=== PATIENT | male | born 1970 | race African-American/Black ===

== ENCOUNTER 2021-09-13 13:43 | Emergency (ER) | payer SELFPAY ==
[~2021-09-13] VITALS: Ht 175.3 cm; Wt 113.4 kg
[2021-09-13 15:30] VITALS: BP 128/82
== END 2021-09-13 15:51 | disposition home or self-care (01) ==
LOC: ER 13:43
DX: M77.8 Other enthesopathies, not elsewhere classified (principal); Z87.891 Personal history of nicotine dependence; W18.39XA Other fall on same level, initial encounter; Y93.89 Activity, other specified; Y92.89 Other specified places as the place of occurrence of the external cause; Y99.8 Other external cause status
CPT/HCPCS: 73030

== ENCOUNTER 2022-09-13 22:52 | Inpatient (IN) | payer MEDICAID ==
[~2022-09-13] VITALS: Ht 175.3 cm
[2022-09-14] MEDS ORDERED: SODIUM CHLORIDE 0.9% 500 ML IV ONE
[2022-09-14 00:19] LABS: Basophils # (auto) 0.1 10 ^3/uL (0-0.2); Basophils % (auto) 1.3 % (0.0-2.0); Eosinophils # (auto) 0.1 10 ^3/uL (0-0.8); Eosinophils % (auto) 1.1 % (0.0-7.0); Hematocrit 43.9 % (41.0-53.0); Hemoglobin 14.6 g/dL (13.5-17.5); Lymphocytes # (auto) 2.7 10 ^3/uL (0.4-5.4); Lymphocytes % (auto) 32.9 % (10.0-50.0); Mean Corpuscular Hemoglobin 27.8 pg (28.0-32.0); Mean Corpuscular Hgb Conc. 33.2 g/dL (32.0-36.0); Mean Corpuscular Volume 83.5 fL (80.0-100.0); Monocytes # (auto) 0.9 10 ^3/uL (0-1.3); Monocytes % (auto) 10.2 % (0.0-12.0); Neutrophils # (auto) 4.6 10 ^3/uL (1.6-8.6); Neutrophils % (auto) 54.5 % (37.0-80.0); Nucleated Red Blood Cells % 0.2 %; Red Blood Cells 5.25 10^6/uL (4.5-5.90); Red Cell Distribution Width 15.2 % (11.8-14.3); White Blood Cell 8.3 10^3/uL (4.4-10.8)
[2022-09-14 00:34] LABS: Albumin 3.7 g/dL (3.4-5.0); BUN/Creatinine Ratio 15.1 (10.0-20.0); Calcium 8.8 mg/dL (8.5-10.1); Potassium 4.3 mmol/L (3.5-5.1)
[2022-09-14 00:37] LABS: Bilirubin, Total 0.7 mg/dL (0.2-1.0); Total Protein 7.2 g/dL (6.4-8.2)
[2022-09-14] MEDS ORDERED: dilTIAZem 25 MG/5 ML VIAL IV ONE ×3 (01:15)
[2022-09-14] MEDS ORDERED: ASPirin 81 mg TAB PO ONE (01:15)
[2022-09-14] MEDS ORDERED: HYDROcodone-ACET 5/325MG TAB PO PRN (03:00)
[2022-09-14] MEDS ORDERED: IBUPROFEN 600 MG TAB PO PRN (03:00)
[2022-09-14] MEDS ORDERED: ONDANSETRON HCL 4 MG/2 ML VIAL IV PRN (03:00)
[2022-09-14] MEDS ORDERED: MORPHINE SULFATE INJ 2 MG/ml SYRG IV PRN ×2 (03:00→04:30)
[2022-09-14] MEDS ORDERED: NITROGLYCERIN 0.4 MG SL TAB SL PRN (04:30)
[2022-09-14] MEDS: SODIUM CHLOR 0.9% PF (SALINE LOCK) 10ML VIAL/SYR IV SCH ×3 (05:43→21:48)
[2022-09-14 06:14] LABS: Basophils # (auto) 0.1 10 ^3/uL (0-0.2); Basophils % (auto) 0.8 % (0.0-2.0); Eosinophils # (auto) 0.1 10 ^3/uL (0-0.8); Eosinophils % (auto) 1.1 % (0.0-7.0); Hematocrit 41.5 % (41.0-53.0); Hemoglobin 13.7 g/dL (13.5-17.5); Lymphocytes # (auto) 2.7 10 ^3/uL (0.4-5.4); Lymphocytes % (auto) 38.1 % (10.0-50.0); Mean Corpuscular Hemoglobin 27.7 pg (28.0-32.0); Mean Corpuscular Volume 83.9 fL (80.0-100.0); Monocytes # (auto) 0.7 10 ^3/uL (0-1.3); Monocytes % (auto) 9.9 % (0.0-12.0); Neutrophils # (auto) 3.5 10 ^3/uL (1.6-8.6); Neutrophils % (auto) 50.1 % (37.0-80.0); Nucleated Red Blood Cells % 0.1 %; Red Blood Cells 4.95 10^6/uL (4.5-5.90); Red Cell Distribution Width 14.9 % (11.8-14.3); White Blood Cell 7.1 10^3/uL (4.4-10.8)
[2022-09-14 06:41] LABS: Potassium 4.4 mmol/L (3.5-5.1)
[2022-09-14 07:09] LABS: Albumin 3.6 g/dL (3.4-5.0); BUN/Creatinine Ratio 16.6 (10.0-20.0); Bilirubin, Total 0.7 mg/dL (0.2-1.0); Total Protein 6.5 g/dL (6.4-8.2)
[2022-09-14] MEDS ORDERED: AMIODARONE HCL 200 MG TAB PO SCH (10:00)
[2022-09-14] MEDS ORDERED: CARVEDILOL 12.5 MG TAB PO SCH (10:00)
[2022-09-14] MEDS: FUROSEMIDE 40 MG/4 ML VIAL IV SCH (10:40)
[2022-09-14] MEDS: ASPirin 81 mg TAB PO SCH (10:41)
[2022-09-14] MEDS: FAMOTIDINE (10MG/ML) 2ML VL IV SCH (10:41)
[2022-09-14] MEDS: APIXABAN 5 MG TAB PO SCH ×2 (10:42→22:52)
[2022-09-14] MEDS: dilTIAZem HCL 60 MG TAB PO SCH ×2 (12:43→22:43)
[2022-09-14] MEDS ORDERED: AMIODARONE 450mg/250ml AE 250 ML IV SCH ×2 (13:45→19:45)
[2022-09-14] MEDS ORDERED: LORazepam 2MG/ML-1ML VIAL IV ONE (16:15)
[2022-09-14 17:50] VITALS: BP 98/75
[2022-09-14] MEDS ORDERED: SODIUM CHLORIDE 0.9% 1,000 ML IV ONE (18:45)
[2022-09-14] MEDS: SUCRALFATE 1 GM/10 ML ORAL SUSP PO SCH (19:29)
[2022-09-14 19:58] VITALS: BP 117/94
[2022-09-14] MEDS: NOREPINEPHRINE 8 MG/250ML KIT 250 ML IV SCH (21:13)
[2022-09-14] MEDS ORDERED: ALPRAZolam 0.5 MG TAB PO PRN (22:00)
[2022-09-14] MEDS ORDERED: CARVEDILOL 3.125 MG TAB PO SCH (22:00)
[2022-09-14] MEDS: ATORVASTATIN 20 MG TAB PO SCH (22:52)
[2022-09-14 23:21] VITALS: BP 117/94
[2022-09-15] VITALS (70 sets, daily range): BP systolic 87–128; BP diastolic 36–87
[2022-09-15] MEDS: LORazepam 2MG/ML-1ML VIAL IV PRN (00:01)
[2022-09-15] MEDS ORDERED: levETIRAcetam 500 MG/5ML INJ IV ONE (00:19)
[2022-09-15] MEDS ORDERED: LORazepam 2MG/ML-1ML VIAL ONE (03:53)
[2022-09-15] MEDS ORDERED: ETOMIDATE (2MG/ML) 20ML VIAL IV ONE ×2 (03:58→05:00)
[2022-09-15] MEDS ORDERED: ROCURONIUM 10MG/ML 10ML VIAL IV ONE ×2 (03:58→05:00)
[2022-09-15] MEDS ORDERED: LORazepam 2MG/ML-1ML VIAL IV ONE ×2 (04:00→06:30)
[2022-09-15] MEDS ORDERED: EPINEPHrine HCL 1 MG/10 ML SYRG ONE ×2 (04:12→06:03)
[2022-09-15] MEDS ORDERED: EPINEPHrine HCL 250 ML IV ONE (04:12)
[2022-09-15] MEDS ORDERED: fentaNYL Drip 2500mCg/250mlNS 250 ML IV ONE (04:25)
[2022-09-15] MEDS: fentaNYL Drip 2500mCg/250mlNS 250 ML IV SCH ×2 (04:25→20:33)
[2022-09-15] MEDS: EPINEPHrine HCL 250 ML IV SCH ×3 (04:25→18:05)
[2022-09-15] MEDS ORDERED: fentaNYL CITRATE 100 MCG/2 ML VL IV ONE (04:45)
[2022-09-15 05:45] LABS: Basophils # (auto) 0.1 10 ^3/uL (0-0.2); Basophils % (auto) 0.4 % (0.0-2.0); Eosinophils # (auto) 0 10 ^3/uL (0-0.8); Hematocrit 45.2 % (41.0-53.0); Hemoglobin 14.2 g/dL (13.5-17.5); Lymphocytes # (auto) 2.5 10 ^3/uL (0.4-5.4); Lymphocytes % (auto) 18.2 % (10.0-50.0); Mean Corpuscular Hemoglobin 27.2 pg (28.0-32.0); Mean Corpuscular Hgb Conc. 31.3 g/dL (32.0-36.0); Mean Corpuscular Volume 86.8 fL (80.0-100.0); Monocytes # (auto) 0.9 10 ^3/uL (0-1.3); Monocytes % (auto) 6.9 % (0.0-12.0); Neutrophils # (auto) 10.1 10 ^3/uL (1.6-8.6); Neutrophils % (auto) 74.5 % (37.0-80.0); Nucleated Red Blood Cells % 0.6 %; Red Blood Cells 5.21 10^6/uL (4.5-5.90); Red Cell Distribution Width 15.7 % (11.8-14.3); White Blood Cell 13.6 10^3/uL (4.4-10.8)
[2022-09-15] MEDS: dilTIAZem HCL 60 MG TAB PO SCH (06:00)
[2022-09-15] MEDS ORDERED: DOPamine 1600MCG/ML D5W 250 ML IV ONE ×2 (06:01→12:09)
[2022-09-15] MEDS ORDERED: SODIUM BICARBONATE 8.4 % INJ 50ML VIAL IV ONE (06:01)
[2022-09-15 06:05] LABS: Albumin 3.2 g/dL (3.4-5.0); Calcium 8.7 mg/dL (8.5-10.1)
[2022-09-15 06:07] LABS: Potassium 7.1 mmol/L (3.5-5.1)
[2022-09-15] MEDS ORDERED: InsuLIN REG 1unit/0.01ml Soln (100units/ml) ONE (06:11)
[2022-09-15] MEDS ORDERED: MIDAZOLAM HCL 5 MG/ML-1ML VIAL ONE (06:16)
[2022-09-15 06:22] LABS: BUN/Creatinine Ratio 9.4 (10.0-20.0); Total Protein 6.3 g/dL (6.4-8.2)
[2022-09-15] MEDS: SODIUM CHLOR 0.9% PF (SALINE LOCK) 10ML VIAL/SYR IV SCH ×3 (06:29→21:46)
[2022-09-15] MEDS ORDERED: DEXTROSE (50%) 50ML SYRG IV ONE ×2 (06:30→11:30)
[2022-09-15] MEDS ORDERED: DEXTROSE 10% 250 ML IV ONE (06:30)
[2022-09-15] MEDS ORDERED: InsuLIN REG 1unit/0.01ml Soln (100units/ml) IV ONE ×2 (06:30→11:30)
[2022-09-15] MEDS ORDERED: MIDAZOLAM HCL 5 MG/ML-1ML VIAL IV ONE (06:30)
[2022-09-15] MEDS ORDERED: CALCIUM CHLOR(10%) 100MG/ML 10ML SYRINGE IV SCH (06:30)
[2022-09-15] MEDS: SUCRALFATE 1 GM/10 ML ORAL SUSP PO SCH ×3 (07:00→19:14)
[2022-09-15] MEDS ORDERED: DOPamine 1600MCG/ML D5W 250 ML IV SCH ×2 (07:15→11:30)
[2022-09-15] MEDS ORDERED: SODIUM BICARBONATE 50ML VIAL 50 ML in SOD CHL 0.45% 1,000 ML IV SCH (07:15)
[2022-09-15] MEDS ORDERED: SODIUM BICARBONATE 50ML VIAL 150 ML in D5W 5% 1,000 ML IV SCH (09:30)
[2022-09-15] MEDS: PROPOFOL 100 ML IV SCH (09:30)
[2022-09-15 09:45] LABS: Eosinophils # (auto) 0 10 ^3/uL (0-0.8); Nucleated Red Blood Cells % 0.3 %
[2022-09-15 09:46] LABS: Basophils # (auto) 0.1 10 ^3/uL (0-0.2); Basophils % (auto) 0.4 % (0.0-2.0); Eosinophils % (auto) 0.1 % (0.0-7.0); Hematocrit 41.4 % (41.0-53.0); Hemoglobin 13.6 g/dL (13.5-17.5); Lymphocytes # (auto) 1.2 10 ^3/uL (0.4-5.4); Lymphocytes % (auto) 6.7 % (10.0-50.0); Mean Corpuscular Hemoglobin 27.1 pg (28.0-32.0); Mean Corpuscular Hgb Conc. 32.9 g/dL (32.0-36.0); Mean Corpuscular Volume 82.4 fL (80.0-100.0); Monocytes # (auto) 0.9 10 ^3/uL (0-1.3); Monocytes % (auto) 5.2 % (0.0-12.0); Neutrophils # (auto) 15.8 10 ^3/uL (1.6-8.6); Neutrophils % (auto) 87.6 % (37.0-80.0); Red Blood Cells 5.03 10^6/uL (4.5-5.90); Red Cell Distribution Width 14.6 % (11.8-14.3)
[2022-09-15 09:50] LABS: Albumin 3.3 g/dL (3.4-5.0); Calcium 9.7 mg/dL (8.5-10.1)
[2022-09-15] MEDS ORDERED: ENOXAPARIN SOD 40 MG/0.4 ML SYRINGE SC SCH (10:00)
[2022-09-15 10:17] LABS: BUN/Creatinine Ratio 9.9 (10.0-20.0); Bilirubin, Total 3.3 mg/dL (0.2-1.0); Total Protein 6.4 g/dL (6.4-8.2)
[2022-09-15] MEDS ORDERED: CEFEPIME 2GM/50ML NS 50 ML IV ONE (10:30)
[2022-09-15] MEDS: FUROSEMIDE 40 MG/4 ML VIAL IV SCH (10:30)
[2022-09-15 10:38] LABS: Potassium 6.7 mmol/L (3.5-5.1)
[2022-09-15] MEDS: FAMOTIDINE (10MG/ML) 2ML VL IV SCH (11:26)
[2022-09-15] MEDS ORDERED: CALCIUM GLUC 1,000mg/50ml-NS 50 ML IV ONE (11:30)
[2022-09-15] MEDS ORDERED: SODIUM ZIRCONIUM CYCL 10 GM PAK PO ONE (11:30)
[2022-09-15] MEDS: PANTOPRAZOLE 40 MG/10 ML VIAL INJ IV SCH (11:40)
[2022-09-15] MEDS: ASPirin 81 mg TAB PO SCH (11:40)
[2022-09-15] MEDS ORDERED: DEXTROSE 10% 250 ML Bag IV ONE (12:00)
[2022-09-15] MEDS: DOPamine 1600MCG/ML D5W 250 ML IV SCH (12:09)
[2022-09-15 12:26] LABS: Alcohol, Urine < 3.0 mg/dL (0-10); Barbiturate Scree,Urine NEGATIVE (NEGATIVE); Benzodiazephine Screen, Urine POSITIVE (NEGATIVE); Cannabinoid Screen, Urine NEGATIVE (NEGATIVE); Cocaine Screen, Urine NEGATIVE (NEGATIVE)
[2022-09-15 12:27] LABS: Lactic Acid w/Reflex 4.6 mmol/L (0.4-2.0)
[2022-09-15 12:37] LABS: Amphetamine Screen, Urine NEGATIVE (NEGATIVE); Opiate Scree,Urine NEGATIVE (NEGATIVE); Phencyclidine Screen, Urine NEGATIVE (NEGATIVE)
[2022-09-15 13:04] LABS: Urine Bacteria NONE SEEN /hpf (None Seen); Urine Blood 3+ /uL (Negative); Urine Hyaline Cast MOD /lpf (0 - 2); Urine Mucus FEW (None Seen); Urine Specific Gravity 1.016 (1.001-1.035); Urine WBC 102 /hpf (0 - 3)
[2022-09-15] MEDS: SODIUM BICARBONATE 50ML VIAL 50 ML in D5W/SOD CHL 0.45% 1,000 ML IV SCH ×2 (13:05→22:58)
[2022-09-15] MEDS: BUMETANIDE INJECTION 12.5 MG in GIVE UN-DILUTED 0 ML IV SCH ×2 (13:22→22:59)
[2022-09-15 13:28] LABS: Protein, Urine 918.6 mg/dL (0.0-11.9)
[2022-09-15] MEDS: NOREPINEPHRINE 8 MG/250ML KIT 250 ML IV SCH (15:30)
[2022-09-15 18:39] LABS: BUN/Creatinine Ratio 11.1 (10.0-20.0); Calcium 8.8 mg/dL (8.5-10.1); Potassium 5.4 mmol/L (3.5-5.1)
[2022-09-15] MEDS: ATORVASTATIN 20 MG TAB PO SCH (21:46)
[2022-09-16] VITALS (102 sets, daily range): BP systolic 92–206; BP diastolic 57–200
[2022-09-16] MEDS: EPINEPHrine HCL 250 ML IV SCH ×4 (00:45→19:45)
[2022-09-16 04:39] LABS: Basophils # (auto) 0.1 10 ^3/uL (0-0.2); Basophils % (auto) 0.7 % (0.0-2.0); Eosinophils # (auto) 0 10 ^3/uL (0-0.8); Eosinophils % (auto) 0.1 % (0.0-7.0); Hematocrit 38.6 % (41.0-53.0); Hemoglobin 12.9 g/dL (13.5-17.5); Lymphocytes # (auto) 1.6 10 ^3/uL (0.4-5.4); Lymphocytes % (auto) 11.5 % (10.0-50.0); Mean Corpuscular Hemoglobin 27.1 pg (28.0-32.0); Mean Corpuscular Hgb Conc. 33.5 g/dL (32.0-36.0); Mean Corpuscular Volume 81.1 fL (80.0-100.0); Monocytes # (auto) 0.4 10 ^3/uL (0-1.3); Monocytes % (auto) 2.5 % (0.0-12.0); Neutrophils # (auto) 11.9 10 ^3/uL (1.6-8.6); Neutrophils % (auto) 85.2 % (37.0-80.0); Nucleated Red Blood Cells % 0.7 %; Red Blood Cells 4.76 10^6/uL (4.5-5.90); Red Cell Distribution Width 15.3 % (11.8-14.3); White Blood Cell 13.9 10^3/uL (4.4-10.8)
[2022-09-16 05:19] LABS: Albumin 2.9 g/dL (3.4-5.0); Calcium 7.7 mg/dL (8.5-10.1); Potassium 4.2 mmol/L (3.5-5.1)
[2022-09-16 05:44] LABS: Total Protein 5.4 g/dL (6.4-8.2)
[2022-09-16] MEDS: SUCRALFATE 1 GM/10 ML ORAL SUSP PO SCH ×3 (06:59→17:57)
[2022-09-16] MEDS: SODIUM CHLOR 0.9% PF (SALINE LOCK) 10ML VIAL/SYR IV SCH ×3 (06:59→21:33)
[2022-09-16] MEDS: PROPOFOL 100 ML IV SCH (09:30)
[2022-09-16] MEDS: SODIUM BICARBONATE 50ML VIAL 50 ML in D5W/SOD CHL 0.45% 1,000 ML IV SCH ×3 (09:48→22:05)
[2022-09-16] MEDS: CEFEPIME 2GM/50ML NS 50 ML IV SCH (10:36)
[2022-09-16] MEDS: PANTOPRAZOLE 40 MG/10 ML VIAL INJ IV SCH (10:37)
[2022-09-16] MEDS: FAMOTIDINE (10MG/ML) 2ML VL IV SCH (10:41)
[2022-09-16] MEDS: ENOXAPARIN SOD 40 MG/0.4 ML SYRINGE SC SCH (10:42)
[2022-09-16] MEDS: ASPirin 81 mg TAB PO SCH (10:42)
[2022-09-16] MEDS: fentaNYL Drip 2500mCg/250mlNS 250 ML IV SCH (11:57)
[2022-09-16] MEDS: DOPamine 1600MCG/ML D5W 250 ML IV SCH (17:44)
[2022-09-16] MEDS: NOREPINEPHRINE 8 MG/250ML KIT 250 ML IV SCH (19:45)
[2022-09-16] MEDS: ATORVASTATIN 20 MG TAB PO SCH (21:33)
[2022-09-16] MEDS ORDERED: SODIUM BICARBONATE 8.4% INJ 50ML SYRINGE ONE (21:54)
[2022-09-16] MEDS: BUMETANIDE INJECTION 12.5 MG in GIVE UN-DILUTED 0 ML IV SCH (22:00)
[2022-09-17] VITALS (103 sets, daily range): BP systolic 99–156; BP diastolic 66–98
[2022-09-17] MEDS: EPINEPHrine HCL 250 ML IV SCH ×4 (03:25→23:25)
[2022-09-17 04:01] LABS: Basophils # (auto) 0.1 10 ^3/uL (0-0.2); Basophils % (auto) 0.8 % (0.0-2.0); Eosinophils # (auto) 0 10 ^3/uL (0-0.8); Eosinophils % (auto) 0.1 % (0.0-7.0); Hematocrit 40.7 % (41.0-53.0); Hemoglobin 13.9 g/dL (13.5-17.5); Lymphocytes # (auto) 0.9 10 ^3/uL (0.4-5.4); Lymphocytes % (auto) 8.7 % (10.0-50.0); Mean Corpuscular Hemoglobin 27.8 pg (28.0-32.0); Mean Corpuscular Hgb Conc. 34.2 g/dL (32.0-36.0); Mean Corpuscular Volume 81.1 fL (80.0-100.0); Monocytes # (auto) 0.6 10 ^3/uL (0-1.3); Monocytes % (auto) 5.2 % (0.0-12.0); Neutrophils # (auto) 9.2 10 ^3/uL (1.6-8.6); Neutrophils % (auto) 85.2 % (37.0-80.0); Nucleated Red Blood Cells % 0.5 %; Red Blood Cells 5.01 10^6/uL (4.5-5.90); Red Cell Distribution Width 15.3 % (11.8-14.3); White Blood Cell 10.8 10^3/uL (4.4-10.8)
[2022-09-17 04:02] LABS: Calcium 7.7 mg/dL (8.5-10.1); Potassium 3.6 mmol/L (3.5-5.1)
[2022-09-17 04:04] LABS: BUN/Creatinine Ratio 9.2 (10.0-20.0)
[2022-09-17] MEDS: fentaNYL Drip 2500mCg/250mlNS 250 ML IV SCH ×2 (04:16→19:31)
[2022-09-17] MEDS ORDERED: SODIUM BICARBONATE 8.4 % INJ 50ML VIAL IV ONE (05:33)
[2022-09-17] MEDS: SODIUM CHLOR 0.9% PF (SALINE LOCK) 10ML VIAL/SYR IV SCH ×3 (06:02→21:26)
[2022-09-17] MEDS: SUCRALFATE 1 GM/10 ML ORAL SUSP PO SCH ×3 (06:02→17:47)
[2022-09-17] MEDS ORDERED: SODIUM CHL 0.9% 1000 ML BAG XX ONE (07:00)
[2022-09-17] MEDS: PROPOFOL 100 ML IV SCH ×2 (09:30→23:12)
[2022-09-17] MEDS ORDERED: Jevity 1.2 Cal/Fiber 1 Liter GT SCH (09:45)
[2022-09-17] MEDS: ASPirin 81 mg TAB PO SCH (10:54)
[2022-09-17] MEDS: DOCUSATE SOD 100 MG CAP PO PRN (10:54)
[2022-09-17] MEDS: FAMOTIDINE (10MG/ML) 2ML VL IV SCH (10:55)
[2022-09-17] MEDS: PANTOPRAZOLE 40 MG/10 ML VIAL INJ IV SCH (10:55)
[2022-09-17] MEDS: ENOXAPARIN SOD 40 MG/0.4 ML SYRINGE SC SCH (10:55)
[2022-09-17] MEDS: CEFEPIME 2GM/50ML NS 50 ML IV SCH (10:56)
[2022-09-17] MEDS: DOPamine 1600MCG/ML D5W 250 ML IV SCH ×2 (11:17→21:25)
[2022-09-17 14:32] LABS: Hepatitis C Antibody Negative (Negative)
[2022-09-17] MEDS: D5W 5% 1,000 ML IV SCH (17:49)
[2022-09-17] MEDS: NOREPINEPHRINE 8 MG/250ML KIT 250 ML IV SCH (21:00)
[2022-09-17] MEDS: BUMETANIDE INJECTION 12.5 MG in GIVE UN-DILUTED 0 ML IV SCH (21:26)
[2022-09-17] MEDS: ACCU-CHEK COMFORT CURVE STRIP VI SCH (21:26)
[2022-09-17] MEDS: ATORVASTATIN 20 MG TAB PO SCH (21:26)
[2022-09-17] MEDS ORDERED: DEXTROSE (50%) 50ML SYRG IV PRN (22:00)
[2022-09-18] VITALS (99 sets, daily range): BP systolic 86–161; BP diastolic 58–97
[2022-09-18] MEDS: ACCU-CHEK COMFORT CURVE STRIP VI SCH ×6 (00:45→20:18)
[2022-09-18 01:55] LABS: Potassium 3.3 mmol/L (3.5-5.1)
[2022-09-18 01:59] LABS: Magnesium 2.4 mg/dL (1.6-2.6)
[2022-09-18 03:54] LABS: Basophils # (auto) 0.1 10 ^3/uL (0-0.2); Basophils % (auto) 0.7 % (0.0-2.0); Eosinophils # (auto) 0.1 10 ^3/uL (0-0.8); Eosinophils % (auto) 0.9 % (0.0-7.0); Hematocrit 43.7 % (41.0-53.0); Hemoglobin 14.9 g/dL (13.5-17.5); Lymphocytes # (auto) 1.1 10 ^3/uL (0.4-5.4); Lymphocytes % (auto) 11.8 % (10.0-50.0); Mean Corpuscular Hemoglobin 27.7 pg (28.0-32.0); Mean Corpuscular Hgb Conc. 34.2 g/dL (32.0-36.0); Mean Corpuscular Volume 81.2 fL (80.0-100.0); Monocytes # (auto) 0.7 10 ^3/uL (0-1.3); Neutrophils # (auto) 7.6 10 ^3/uL (1.6-8.6); Neutrophils % (auto) 79.6 % (37.0-80.0); Nucleated Red Blood Cells % 0.4 %; Red Blood Cells 5.38 10^6/uL (4.5-5.90); Red Cell Distribution Width 15.2 % (11.8-14.3); White Blood Cell 9.5 10^3/uL (4.4-10.8)
[2022-09-18 04:12] LABS: Albumin 2.8 g/dL (3.4-5.0); Calcium 7.9 mg/dL (8.5-10.1); Potassium 3.3 mmol/L (3.5-5.1)
[2022-09-18 04:15] LABS: BUN/Creatinine Ratio 9.5 (10.0-20.0)
[2022-09-18 04:25] LABS: Bilirubin, Total 3.2 mg/dL (0.2-1.0); Total Protein 6.1 g/dL (6.4-8.2)
[2022-09-18] MEDS: SUCRALFATE 1 GM/10 ML ORAL SUSP PO SCH ×3 (05:55→17:08)
[2022-09-18] MEDS: D5W 5% 1,000 ML IV SCH (05:56)
[2022-09-18] MEDS: SODIUM CHLOR 0.9% PF (SALINE LOCK) 10ML VIAL/SYR IV SCH ×3 (05:59→22:09)
[2022-09-18] MEDS: EPINEPHrine HCL 250 ML IV SCH ×3 (06:05→19:25)
[2022-09-18] MEDS: PANTOPRAZOLE 40 MG/10 ML VIAL INJ IV SCH (10:20)
[2022-09-18] MEDS: ENOXAPARIN SOD 30 MG/0.3 ML SYRINGE SC SCH (10:21)
[2022-09-18] MEDS: ASPirin 81 mg TAB PO SCH (10:22)
[2022-09-18] MEDS: CEFEPIME 2GM/50ML NS 50 ML IV SCH (10:31)
[2022-09-18] MEDS: DOCUSATE SOD 100 MG CAP PO PRN (10:32)
[2022-09-18] MEDS: fentaNYL Drip 2500mCg/250mlNS 250 ML IV SCH (12:11)
[2022-09-18] MEDS ORDERED: POTASSIUM CHL 20MEQ/100ML 100 ML IV ONE (13:45)
[2022-09-18] MEDS: PROPOFOL 100 ML IV SCH (17:00)
[2022-09-18] MEDS ORDERED: BUMETANIDE 1mg/4ml VIAL (0.25mg/ml) IV SCH (18:00)
[2022-09-18] MEDS: NOREPINEPHRINE 8 MG/250ML KIT 250 ML IV SCH (21:00)
[2022-09-18] MEDS: ATORVASTATIN 20 MG TAB PO SCH (22:08)
[2022-09-19] VITALS (88 sets, daily range): BP systolic 88–136; BP diastolic 47–96
[2022-09-19] MEDS: ACCU-CHEK COMFORT CURVE STRIP VI SCH ×6 (00:25→19:40)
[2022-09-19] MEDS: EPINEPHrine HCL 250 ML IV SCH ×4 (02:05→22:28)
[2022-09-19 04:45] LABS: Basophils # (auto) 0 10 ^3/uL (0-0.2); Basophils % (auto) 0.4 % (0.0-2.0); Eosinophils # (auto) 0.1 10 ^3/uL (0-0.8)
[2022-09-19 04:47] LABS: Eosinophils % (auto) 0.6 % (0.0-7.0); Hematocrit 47.8 % (41.0-53.0); Hemoglobin 16.6 g/dL (13.5-17.5); Lymphocytes # (auto) 1.2 10 ^3/uL (0.4-5.4); Lymphocytes % (auto) 13.6 % (10.0-50.0); Mean Corpuscular Hemoglobin 27.8 pg (28.0-32.0); Mean Corpuscular Hgb Conc. 34.8 g/dL (32.0-36.0); Monocytes # (auto) 1.2 10 ^3/uL (0-1.3); Neutrophils # (auto) 6.6 10 ^3/uL (1.6-8.6); Neutrophils % (auto) 72.4 % (37.0-80.0); Nucleated Red Blood Cells % 0.3 %; Red Blood Cells 5.97 10^6/uL (4.5-5.90); Red Cell Distribution Width 15.4 % (11.8-14.3); White Blood Cell 9.1 10^3/uL (4.4-10.8)
[2022-09-19 04:48] LABS: Calcium 8.4 mg/dL (8.5-10.1); Potassium 3.5 mmol/L (3.5-5.1)
[2022-09-19 04:59] LABS: Total Protein 6.9 g/dL (6.4-8.2)
[2022-09-19 05:41] LABS: BUN/Creatinine Ratio 10.7 (10.0-20.0)
[2022-09-19] MEDS: SUCRALFATE 1 GM/10 ML ORAL SUSP PO SCH ×3 (05:55→17:21)
[2022-09-19] MEDS: PROPOFOL 100 ML IV SCH ×2 (05:55→22:27)
[2022-09-19] MEDS: SODIUM CHLOR 0.9% PF (SALINE LOCK) 10ML VIAL/SYR IV SCH ×3 (05:55→22:27)
[2022-09-19] MEDS: BUMETANIDE 1mg/4ml VIAL (0.25mg/ml) IV SCH ×2 (06:46→17:22)
[2022-09-19] MEDS ORDERED: SODIUM CHLORIDE 0.9% 1,000 ML IV SCH (07:30)
[2022-09-19] MEDS: fentaNYL Drip 2500mCg/250mlNS 250 ML IV SCH (07:36)
[2022-09-19] MEDS: PANTOPRAZOLE 40 MG/10 ML VIAL INJ IV SCH (09:50)
[2022-09-19] MEDS: CEFEPIME 2GM/50ML NS 50 ML IV SCH (09:50)
[2022-09-19] MEDS: ASPirin 81 mg TAB PO SCH (09:51)
[2022-09-19] MEDS: ENOXAPARIN SOD 30 MG/0.3 ML SYRINGE SC SCH (09:51)
[2022-09-19] MEDS: IPRATROPIUM BROM 0.5 MG/2.5ML INH SOL NEB SCH ×2 (11:03→18:07)
[2022-09-19] MEDS: LEVALBUTEROL HCL 1.25 MG/3 ML NEB NEB SCH ×2 (11:03→18:06)
[2022-09-19] MEDS: FREE WATER GT SCH ×2 (14:08→22:27)
[2022-09-19] MEDS ORDERED: CHOLECALCIFEROL (VITD3) 2,000 UNIT CAP/TAB NG ONE (15:15)
[2022-09-19 16:25] LABS: Urine Bacteria FEW /hpf (None Seen); Urine Blood 1+ /uL (Negative); Urine Mucus FEW (None Seen); Urine Specific Gravity 1.008 (1.001-1.035); Urine WBC 1 /hpf (0 - 3)
[2022-09-19] MEDS: CALCIUM ACETATE 667 MG CAP NG SCH (17:21)
[2022-09-19 18:08] LABS: Protein, Urine 29.7 mg/dL (0.0-11.9)
[2022-09-19] MEDS: NOREPINEPHRINE 8 MG/250ML KIT 250 ML IV SCH (21:00)
[2022-09-19] MEDS: ATORVASTATIN 20 MG TAB PO SCH (22:27)
[2022-09-20] VITALS (103 sets, daily range): BP systolic 78–178; BP diastolic 57–103
[2022-09-20] MEDS: LEVALBUTEROL HCL 1.25 MG/3 ML NEB NEB SCH ×4 (00:06→18:04)
[2022-09-20] MEDS: IPRATROPIUM BROM 0.5 MG/2.5ML INH SOL NEB SCH ×4 (00:06→18:04)
[2022-09-20] MEDS: ACCU-CHEK COMFORT CURVE STRIP VI SCH ×5 (02:00→23:14)
[2022-09-20 04:09] LABS: Basophils # (auto) 0 10 ^3/uL (0-0.2); Basophils % (auto) 0.3 % (0.0-2.0); Eosinophils # (auto) 0 10 ^3/uL (0-0.8); Eosinophils % (auto) 0.4 % (0.0-7.0); Hematocrit 48.9 % (41.0-53.0); Hemoglobin 16.3 g/dL (13.5-17.5); Mean Corpuscular Hemoglobin 27.2 pg (28.0-32.0); Mean Corpuscular Hgb Conc. 33.3 g/dL (32.0-36.0); Mean Corpuscular Volume 81.7 fL (80.0-100.0); Monocytes # (auto) 1.3 10 ^3/uL (0-1.3); Monocytes % (auto) 16.2 % (0.0-12.0); Neutrophils # (auto) 5.6 10 ^3/uL (1.6-8.6); Neutrophils % (auto) 70.1 % (37.0-80.0); Nucleated Red Blood Cells % 0.2 %; Red Blood Cells 5.99 10^6/uL (4.5-5.90); Red Cell Distribution Width 15.4 % (11.8-14.3)
[2022-09-20] MEDS: EPINEPHrine HCL 250 ML IV SCH ×3 (04:45→18:05)
[2022-09-20 05:05] LABS: Albumin 2.9 g/dL (3.4-5.0); Calcium 8.8 mg/dL (8.5-10.1); Potassium 3.2 mmol/L (3.5-5.1)
[2022-09-20 05:17] LABS: BUN/Creatinine Ratio 11.9 (10.0-20.0); Bilirubin, Total 3.2 mg/dL (0.2-1.0); Total Protein 7.2 g/dL (6.4-8.2)
[2022-09-20] MEDS: BUMETANIDE 1mg/4ml VIAL (0.25mg/ml) IV SCH ×2 (05:49→18:32)
[2022-09-20] MEDS: FREE WATER GT SCH ×3 (05:49→21:41)
[2022-09-20] MEDS: SODIUM CHLOR 0.9% PF (SALINE LOCK) 10ML VIAL/SYR IV SCH ×3 (05:49→21:41)
[2022-09-20] MEDS: DOCUSATE SOD 100 MG CAP PO PRN (05:57)
[2022-09-20] MEDS: SUCRALFATE 1 GM/10 ML ORAL SUSP PO SCH ×3 (06:12→18:32)
[2022-09-20] MEDS ORDERED: SODIUM CHL 0.9% 1000 ML BAG XX ONE (06:45)
[2022-09-20] MEDS: NOREPINEPHRINE 8 MG/250ML KIT 250 ML IV SCH (07:15)
[2022-09-20] MEDS ORDERED: Nepro With Carb Steady 1 Liter Bottle GT SCH (07:15)
[2022-09-20] MEDS ORDERED: ALBUMIN 25% 100 ML IV ONE (07:30)
[2022-09-20] MEDS: PANTOPRAZOLE 40 MG/10 ML VIAL INJ IV SCH (10:10)
[2022-09-20] MEDS: CALCIUM ACETATE 667 MG CAP NG SCH ×3 (10:10→18:32)
[2022-09-20] MEDS: ASPirin 81 mg TAB PO SCH (10:10)
[2022-09-20] MEDS: ENOXAPARIN SOD 30 MG/0.3 ML SYRINGE SC SCH (10:11)
[2022-09-20] MEDS: CHOLECALCIFEROL (VITD3) 2,000 UNIT CAP/TAB NG SCH (10:11)
[2022-09-20] MEDS: PROPOFOL 100 ML IV SCH ×3 (11:04→23:14)
[2022-09-20] MEDS: CEFEPIME 2GM/50ML NS 50 ML IV SCH (12:12)
[2022-09-20 15:13] LABS: Hepatitis B Surface Antibody Negative (Negative)
[2022-09-20 15:52] LABS: Hepatitis A Total Antibody Positive (Negative)
[2022-09-20 16:22] LABS: Hepatitis C Antibody Negative (Negative)
[2022-09-20] MEDS: ATORVASTATIN 20 MG TAB PO SCH (21:41)
[2022-09-21] VITALS (106 sets, daily range): BP systolic 89–138; BP diastolic 46–105
[2022-09-21] MEDS: IPRATROPIUM BROM 0.5 MG/2.5ML INH SOL NEB SCH ×4 (00:06→19:25)
[2022-09-21] MEDS: LEVALBUTEROL HCL 1.25 MG/3 ML NEB NEB SCH ×4 (00:06→19:25)
[2022-09-21] MEDS: EPINEPHrine HCL 250 ML IV SCH ×4 (00:45→20:45)
[2022-09-21] MEDS: ACETAMINOPHEN 325 MG TAB PO PRN (01:12)
[2022-09-21] MEDS: fentaNYL Drip 2500mCg/250mlNS 250 ML IV SCH (02:48)
[2022-09-21] MEDS: PROPOFOL 100 ML IV SCH ×5 (02:49→21:52)
[2022-09-21 04:48] LABS: Hematocrit 47.1 % (41.0-53.0); Hemoglobin 16.1 g/dL (13.5-17.5); Mean Corpuscular Hemoglobin 27.5 pg (28.0-32.0); Mean Corpuscular Hgb Conc. 34.1 g/dL (32.0-36.0); Mean Corpuscular Volume 80.6 fL (80.0-100.0); Red Blood Cells 5.84 10^6/uL (4.5-5.90); Red Cell Distribution Width 15.5 % (11.8-14.3); White Blood Cell 9.6 10^3/uL (4.4-10.8)
[2022-09-21 05:04] LABS: Band Neutrophils % (manual) 0; Basophils % (manual) 0 (0.0-2.0); Blast Cells 0; Metamyelocytes % 0; Myelocytes % 0; Promyelocytes % 0; Reactive Lymphocytes 0
[2022-09-21 05:11] LABS: Calcium 9.2 mg/dL (8.5-10.1); Potassium 3.3 mmol/L (3.5-5.1)
[2022-09-21 05:15] LABS: BUN/Creatinine Ratio 10.9 (10.0-20.0)
[2022-09-21] MEDS: BUMETANIDE 1mg/4ml VIAL (0.25mg/ml) IV SCH ×2 (05:20→17:59)
[2022-09-21] MEDS: SODIUM CHLOR 0.9% PF (SALINE LOCK) 10ML VIAL/SYR IV SCH ×3 (05:20→23:39)
[2022-09-21] MEDS: FREE WATER GT SCH ×3 (05:20→23:28)
[2022-09-21] MEDS: ACCU-CHEK COMFORT CURVE STRIP VI SCH ×3 (05:20→18:17)
[2022-09-21] MEDS: SUCRALFATE 1 GM/10 ML ORAL SUSP PO SCH ×3 (06:30→17:58)
[2022-09-21 07:06] LABS: Immunoglobulin G, Serum 1003 mg/dL (603-1613)
[2022-09-21 08:07] LABS: Eosinophils % (manual) 2 (0-7); Lymphocytes % (manual) 24 (10.0-50.0); Monocytes % (manual) 18 (0-12)
[2022-09-21] MEDS: CALCIUM ACETATE 667 MG CAP NG SCH ×3 (08:45→17:58)
[2022-09-21] MEDS: POTASSIUM CHL 20MEQ/100ML 100 ML IV SCH ×2 (10:12→12:02)
[2022-09-21] MEDS: ENOXAPARIN SOD 30 MG/0.3 ML SYRINGE SC SCH (10:12)
[2022-09-21] MEDS: ASPirin 81 mg TAB PO SCH (10:12)
[2022-09-21] MEDS: CHOLECALCIFEROL (VITD3) 2,000 UNIT CAP/TAB NG SCH (12:01)
[2022-09-21] MEDS: PANTOPRAZOLE 40 MG/10 ML VIAL INJ IV SCH (13:24)
[2022-09-21] MEDS: CEFEPIME 2GM/50ML NS 50 ML IV SCH (14:35)
[2022-09-21] MEDS: NOREPINEPHRINE 8 MG/250ML KIT 250 ML IV SCH (14:48)
[2022-09-21] MEDS: METOCLOPRAMIDE HCL 5MG/ml INJ 2ml VIAL IV SCH (23:26)
[2022-09-21] MEDS: ATORVASTATIN 20 MG TAB PO SCH (23:26)
[2022-09-21] MEDS: LACTULOSE 20Gm/30ML SOLN PO SCH (23:27)
[2022-09-22] VITALS (104 sets, daily range): BP systolic 94–157; BP diastolic 53–100
[2022-09-22] MEDS: ACCU-CHEK COMFORT CURVE STRIP VI SCH ×5 (01:00→23:59)
[2022-09-22] MEDS: LEVALBUTEROL HCL 1.25 MG/3 ML NEB NEB SCH ×4 (01:01→18:09)
[2022-09-22] MEDS: IPRATROPIUM BROM 0.5 MG/2.5ML INH SOL NEB SCH ×4 (01:02→18:10)
[2022-09-22] MEDS: EPINEPHrine HCL 250 ML IV SCH ×4 (01:02→22:26)
[2022-09-22] MEDS: PROPOFOL 100 ML IV SCH ×8 (02:40→23:59)
[2022-09-22] MEDS: fentaNYL Drip 2500mCg/250mlNS 250 ML IV SCH (04:30)
[2022-09-22 05:00] LABS: Potassium 3.3 mmol/L (3.5-5.1)
[2022-09-22 05:07] LABS: INR 1.19 (0.9-1.15)
[2022-09-22 05:12] LABS: Albumin 2.7 g/dL (3.4-5.0); Bilirubin, Direct 1.5 mg/dL (0-0.2)
[2022-09-22 05:13] LABS: Albumin 2.7 g/dL (3.4-5.0); BUN/Creatinine Ratio 12.7 (10.0-20.0); Calcium 9.4 mg/dL (8.5-10.1); Total Protein 7.6 g/dL (6.4-8.2)
[2022-09-22 05:23] LABS: Total Protein 7.4 g/dL (6.4-8.2)
[2022-09-22] MEDS: METOCLOPRAMIDE HCL 5MG/ml INJ 2ml VIAL IV SCH ×3 (05:42→21:40)
[2022-09-22] MEDS: BUMETANIDE 1mg/4ml VIAL (0.25mg/ml) IV SCH ×2 (05:43→17:41)
[2022-09-22] MEDS: SODIUM CHLOR 0.9% PF (SALINE LOCK) 10ML VIAL/SYR IV SCH ×3 (05:43→21:44)
[2022-09-22] MEDS: FREE WATER GT SCH ×3 (05:43→21:43)
[2022-09-22] MEDS: SUCRALFATE 1 GM/10 ML ORAL SUSP PO SCH ×3 (06:58→17:40)
[2022-09-22] MEDS: POTASSIUM CHL 20MEQ/100ML 100 ML IV SCH ×3 (08:11→10:58)
[2022-09-22] MEDS: CALCIUM ACETATE 667 MG CAP NG SCH ×3 (08:11→17:42)
[2022-09-22] MEDS: ENOXAPARIN SOD 30 MG/0.3 ML SYRINGE SC SCH (09:55)
[2022-09-22] MEDS: CEFEPIME 2GM/50ML NS 50 ML IV SCH (09:56)
[2022-09-22] MEDS: LACTULOSE 20Gm/30ML SOLN PO SCH ×2 (09:57→21:39)
[2022-09-22] MEDS: ASPirin 81 mg TAB PO SCH (09:58)
[2022-09-22] MEDS: CHOLECALCIFEROL (VITD3) 2,000 UNIT CAP/TAB NG SCH (09:58)
[2022-09-22] MEDS: ACETAMINOPHEN 325 MG TAB PO PRN (09:58)
[2022-09-22] MEDS: PANTOPRAZOLE 40 MG/10 ML VIAL INJ IV SCH (10:02)
[2022-09-22] MEDS: ATORVASTATIN 20 MG TAB PO SCH (21:40)
[2022-09-22] MEDS: NOREPINEPHRINE 8 MG/250ML KIT 250 ML IV SCH (21:42)
[2022-09-22] MEDS: chlordiazePOXIDE HCL 25 MG CAP PO SCH (23:59)
[2022-09-23] VITALS (105 sets, daily range): BP systolic 90–135; BP diastolic 53–90
[2022-09-23] MEDS: LEVALBUTEROL HCL 1.25 MG/3 ML NEB NEB SCH ×4 (00:49→18:16)
[2022-09-23] MEDS: IPRATROPIUM BROM 0.5 MG/2.5ML INH SOL NEB SCH ×4 (00:49→18:16)
[2022-09-23] MEDS: PROPOFOL 100 ML IV SCH ×7 (02:35→23:44)
[2022-09-23 04:33] LABS: Hemoglobin 15.4 g/dL (13.5-17.5)
[2022-09-23 04:37] LABS: Hematocrit 45.7 % (41.0-53.0); Mean Corpuscular Hemoglobin 27.2 pg (28.0-32.0); Mean Corpuscular Hgb Conc. 33.7 g/dL (32.0-36.0); Mean Corpuscular Volume 80.7 fL (80.0-100.0); Red Blood Cells 5.67 10^6/uL (4.5-5.90); Red Cell Distribution Width 15.3 % (11.8-14.3); White Blood Cell 10.7 10^3/uL (4.4-10.8)
[2022-09-23 04:44] LABS: Basophils % (manual) 0 (0.0-2.0); Calcium 9.7 mg/dL (8.5-10.1); Metamyelocytes % 0; Myelocytes % 0; Promyelocytes % 0; Reactive Lymphocytes 0
[2022-09-23 04:45] LABS: Blast Cells 0
[2022-09-23 04:46] LABS: BUN/Creatinine Ratio 13.2 (10.0-20.0)
[2022-09-23] MEDS: chlordiazePOXIDE HCL 25 MG CAP PO SCH ×3 (05:57→18:40)
[2022-09-23] MEDS: METOCLOPRAMIDE HCL 5MG/ml INJ 2ml VIAL IV SCH ×3 (05:59→22:47)
[2022-09-23] MEDS: FREE WATER GT SCH ×3 (06:00→22:48)
[2022-09-23] MEDS: BUMETANIDE 1mg/4ml VIAL (0.25mg/ml) IV SCH ×2 (06:01→18:40)
[2022-09-23] MEDS: SODIUM CHLOR 0.9% PF (SALINE LOCK) 10ML VIAL/SYR IV SCH ×3 (06:01→22:48)
[2022-09-23] MEDS: ACCU-CHEK COMFORT CURVE STRIP VI SCH ×3 (06:02→18:34)
[2022-09-23] MEDS: SUCRALFATE 1 GM/10 ML ORAL SUSP PO SCH ×3 (06:02→18:39)
[2022-09-23] MEDS: EPINEPHrine HCL 250 ML IV SCH ×3 (06:05→18:40)
[2022-09-23] MEDS: fentaNYL Drip 2500mCg/250mlNS 250 ML IV SCH (06:24)
[2022-09-23 08:29] LABS: Band Neutrophils % (manual) 1; Eosinophils % (manual) 5 (0-7); Lymphocytes % (manual) 21 (10.0-50.0); Monocytes % (manual) 18 (0-12)
[2022-09-23] MEDS: CHOLECALCIFEROL (VITD3) 2,000 UNIT CAP/TAB NG SCH (10:45)
[2022-09-23] MEDS: ASPirin 81 mg TAB PO SCH (10:45)
[2022-09-23] MEDS: CALCIUM ACETATE 667 MG CAP NG SCH ×3 (10:45→18:39)
[2022-09-23] MEDS: LACTULOSE 20Gm/30ML SOLN PO SCH ×2 (10:55→22:47)
[2022-09-23] MEDS: ENOXAPARIN SOD 30 MG/0.3 ML SYRINGE SC SCH (10:55)
[2022-09-23] MEDS ORDERED: FOLIC ACID 1 MG, MULTIPLE VITAMIN 10 ML, MAGNESIUM SULF SDV 50% 8 MEQ, THIAMINE INJ 100... INJ SCH ×5 (12:00)
[2022-09-23] MEDS: CEFEPIME 2GM/50ML NS 50 ML IV SCH (12:02)
[2022-09-23] MEDS: PANTOPRAZOLE 40 MG/10 ML VIAL INJ IV SCH (12:23)
[2022-09-23] MEDS: NOREPINEPHRINE 8 MG/250ML KIT 250 ML IV SCH (21:00)
[2022-09-23] MEDS: ATORVASTATIN 20 MG TAB PO SCH (22:47)
[2022-09-23] MEDS ORDERED: levETIRAcetam 500 MG/5ML INJ IV ONE (22:51)
[2022-09-24] VITALS (93 sets, daily range): BP systolic 90–144; BP diastolic 47–84
[2022-09-24] MEDS: IPRATROPIUM BROM 0.5 MG/2.5ML INH SOL NEB SCH ×4 (00:06→18:09)
[2022-09-24] MEDS: LEVALBUTEROL HCL 1.25 MG/3 ML NEB NEB SCH ×4 (00:06→18:09)
[2022-09-24] MEDS: EPINEPHrine HCL 250 ML IV SCH ×4 (02:05→22:05)
[2022-09-24] MEDS: PROPOFOL 100 ML IV SCH ×7 (02:33→21:44)
[2022-09-24] MEDS: chlordiazePOXIDE HCL 25 MG CAP PO SCH ×4 (02:44→17:43)
[2022-09-24] MEDS: ACCU-CHEK COMFORT CURVE STRIP VI SCH ×4 (06:00→18:07)
[2022-09-24] MEDS: METOCLOPRAMIDE HCL 5MG/ml INJ 2ml VIAL IV SCH ×3 (06:00→21:46)
[2022-09-24] MEDS: FREE WATER GT SCH ×3 (06:00→21:47)
[2022-09-24 06:19] LABS: Calcium 9.2 mg/dL (8.5-10.1); Potassium 4.1 mmol/L (3.5-5.1)
[2022-09-24 06:22] LABS: BUN/Creatinine Ratio 12.4 (10.0-20.0)
[2022-09-24] MEDS: BUMETANIDE 1mg/4ml VIAL (0.25mg/ml) IV SCH ×2 (06:45→17:45)
[2022-09-24] MEDS: SUCRALFATE 1 GM/10 ML ORAL SUSP PO SCH ×3 (07:00→17:43)
[2022-09-24] MEDS: CALCIUM ACETATE 667 MG CAP NG SCH ×3 (08:00→17:43)
[2022-09-24] MEDS: SODIUM CHLOR 0.9% PF (SALINE LOCK) 10ML VIAL/SYR IV SCH ×3 (08:07→21:47)
[2022-09-24] MEDS ORDERED: Nepro With Carb Steady 1 Liter Bottle GT SCH (10:30)
[2022-09-24] MEDS: ASPirin 81 mg TAB PO SCH (11:00)
[2022-09-24] MEDS: PANTOPRAZOLE 40 MG/10 ML VIAL INJ IV SCH (11:00)
[2022-09-24] MEDS: ENOXAPARIN SOD 30 MG/0.3 ML SYRINGE SC SCH (11:00)
[2022-09-24] MEDS: LACTULOSE 20Gm/30ML SOLN PO SCH ×2 (11:00→21:46)
[2022-09-24] MEDS: CHOLECALCIFEROL (VITD3) 2,000 UNIT CAP/TAB NG SCH (11:00)
[2022-09-24] MEDS: fentaNYL Drip 2500mCg/250mlNS 250 ML IV SCH (12:00)
[2022-09-24] MEDS: NOREPINEPHRINE 8 MG/250ML KIT 250 ML IV SCH (21:00)
[2022-09-24] MEDS: ATORVASTATIN 20 MG TAB PO SCH (21:49)
[2022-09-25] VITALS (69 sets, daily range): BP systolic 101–217; BP diastolic 55–120
[2022-09-25] MEDS: PROPOFOL 100 ML IV SCH ×2 (00:36→08:00)
[2022-09-25] MEDS: chlordiazePOXIDE HCL 25 MG CAP PO SCH ×6 (00:43→22:16)
[2022-09-25] MEDS: ACCU-CHEK COMFORT CURVE STRIP VI SCH ×4 (00:43→17:16)
[2022-09-25] MEDS: IPRATROPIUM BROM 0.5 MG/2.5ML INH SOL NEB SCH ×4 (02:01→17:58)
[2022-09-25] MEDS: LEVALBUTEROL HCL 1.25 MG/3 ML NEB NEB SCH ×4 (02:02→17:58)
[2022-09-25 04:39] LABS: Albumin 2.4 g/dL (3.4-5.0); BUN/Creatinine Ratio 9.9 (10.0-20.0); Hematocrit 40.1 % (41.0-53.0); Hemoglobin 13.7 g/dL (13.5-17.5); Mean Corpuscular Hemoglobin 27.4 pg (28.0-32.0); Mean Corpuscular Hgb Conc. 34.3 g/dL (32.0-36.0); Potassium 4.4 mmol/L (3.5-5.1); Red Blood Cells 5.01 10^6/uL (4.5-5.90); Red Cell Distribution Width 15.2 % (11.8-14.3)
[2022-09-25 04:42] LABS: Bilirubin, Total 1.2 mg/dL (0.2-1.0); Total Protein 7.4 g/dL (6.4-8.2)
[2022-09-25] MEDS: EPINEPHrine HCL 250 ML IV SCH ×3 (04:45→18:05)
[2022-09-25 04:58] LABS: Band Neutrophils % (manual) 0; Basophils % (manual) 0 (0.0-2.0); Blast Cells 0; Metamyelocytes % 0; Myelocytes % 0; Promyelocytes % 0; Reactive Lymphocytes 0
[2022-09-25] MEDS: FREE WATER GT SCH ×3 (06:38→22:00)
[2022-09-25] MEDS: SODIUM CHLOR 0.9% PF (SALINE LOCK) 10ML VIAL/SYR IV SCH ×3 (06:39→22:18)
[2022-09-25] MEDS: METOCLOPRAMIDE HCL 5MG/ml INJ 2ml VIAL IV SCH ×3 (06:39→22:16)
[2022-09-25] MEDS: BUMETANIDE 1mg/4ml VIAL (0.25mg/ml) IV SCH ×2 (06:39→17:41)
[2022-09-25] MEDS: SUCRALFATE 1 GM/10 ML ORAL SUSP PO SCH ×3 (06:39→16:47)
[2022-09-25] MEDS ORDERED: SODIUM CHL 0.9% 1000 ML BAG XX ONE (07:00)
[2022-09-25] MEDS: CALCIUM ACETATE 667 MG CAP NG SCH ×3 (08:00→17:32)
[2022-09-25 09:18] LABS: Eosinophils % (manual) 1 (0-7); Lymphocytes % (manual) 27 (10.0-50.0); Monocytes % (manual) 13 (0-12)
[2022-09-25] MEDS: PANTOPRAZOLE 40 MG/10 ML VIAL INJ IV SCH (09:51)
[2022-09-25] MEDS: ENOXAPARIN SOD 30 MG/0.3 ML SYRINGE SC SCH (09:52)
[2022-09-25] MEDS: CHOLECALCIFEROL (VITD3) 2,000 UNIT CAP/TAB NG SCH (09:52)
[2022-09-25] MEDS: LACTULOSE 20Gm/30ML SOLN PO SCH ×3 (09:52→22:15)
[2022-09-25] MEDS: METOPROLOL TARTRATE 25 MG TAB PO SCH ×2 (09:53→22:17)
[2022-09-25] MEDS: THIAMINE HCL 100 MG TAB PO SCH (09:54)
[2022-09-25] MEDS: ASPirin 81 mg TAB PO SCH (09:54)
[2022-09-25] MEDS: MULTIPLE VITAMIN TAB PO SCH (09:55)
[2022-09-25] MEDS: fentaNYL Drip 2500mCg/250mlNS 250 ML IV SCH (12:37)
[2022-09-25] MEDS: ACETAMINOPHEN 325 MG TAB PO PRN (17:48)
[2022-09-25] MEDS: NOREPINEPHRINE 8 MG/250ML KIT 250 ML IV SCH (21:00)
[2022-09-25] MEDS ORDERED: EPOETIN ALFA-EPBX 10,000 UNIT/1ML VIAL SC ONE (21:00)
[2022-09-25] MEDS: ATORVASTATIN 20 MG TAB PO SCH (22:16)
[2022-09-26] VITALS (104 sets, daily range): BP systolic 78–196; BP diastolic 46–140
[2022-09-26] MEDS: LEVALBUTEROL HCL 1.25 MG/3 ML NEB NEB SCH ×4 (00:21→19:06)
[2022-09-26] MEDS: IPRATROPIUM BROM 0.5 MG/2.5ML INH SOL NEB SCH ×4 (00:22→19:06)
[2022-09-26] MEDS: ACCU-CHEK COMFORT CURVE STRIP VI SCH ×4 (00:40→18:05)
[2022-09-26] MEDS: EPINEPHrine HCL 250 ML IV SCH ×4 (00:45→20:45)
[2022-09-26] MEDS: chlordiazePOXIDE HCL 25 MG CAP PO SCH ×2 (02:22→05:59)
[2022-09-26] MEDS: LACTULOSE 20Gm/30ML SOLN PO SCH ×4 (04:00→21:48)
[2022-09-26 04:15] LABS: Eosinophils # (auto) 0 10 ^3/uL (0-0.8); Eosinophils % (auto) 0.1 % (0.0-7.0); Hemoglobin 13.8 g/dL (13.5-17.5); Lymphocytes # (auto) 1.3 10 ^3/uL (0.4-5.4)
[2022-09-26 04:18] LABS: Basophils # (auto) 0.1 10 ^3/uL (0-0.2); Basophils % (auto) 0.4 % (0.0-2.0); Hematocrit 40.8 % (41.0-53.0); Lymphocytes % (auto) 10.7 % (10.0-50.0); Mean Corpuscular Hemoglobin 26.8 pg (28.0-32.0); Mean Corpuscular Hgb Conc. 33.7 g/dL (32.0-36.0); Mean Corpuscular Volume 79.5 fL (80.0-100.0); Monocytes # (auto) 1.8 10 ^3/uL (0-1.3); Monocytes % (auto) 14.7 % (0.0-12.0); Neutrophils # (auto) 9.1 10 ^3/uL (1.6-8.6); Neutrophils % (auto) 74.1 % (37.0-80.0); Nucleated Red Blood Cells % 0.1 %; Red Blood Cells 5.13 10^6/uL (4.5-5.90); Red Cell Distribution Width 15.5 % (11.8-14.3); White Blood Cell 12.3 10^3/uL (4.4-10.8)
[2022-09-26 04:25] LABS: INR 1.1 (0.9-1.15); Partial Thromboplastin Time 32.2 sec (24.6-33.4)
[2022-09-26 04:29] LABS: BUN/Creatinine Ratio 10.3 (10.0-20.0); Potassium 4.9 mmol/L (3.5-5.1)
[2022-09-26] MEDS: fentaNYL Drip 2500mCg/250mlNS 250 ML IV SCH (04:30)
[2022-09-26] MEDS: METOCLOPRAMIDE HCL 5MG/ml INJ 2ml VIAL IV SCH ×3 (05:58→22:23)
[2022-09-26] MEDS: FREE WATER GT SCH ×3 (05:59→21:48)
[2022-09-26] MEDS: SODIUM CHLOR 0.9% PF (SALINE LOCK) 10ML VIAL/SYR IV SCH ×3 (06:16→22:24)
[2022-09-26] MEDS: SUCRALFATE 1 GM/10 ML ORAL SUSP PO SCH ×3 (06:38→16:53)
[2022-09-26] MEDS ORDERED: SODIUM CHL 0.9% 1000 ML BAG XX ONE (07:00)
[2022-09-26] MEDS: ENOXAPARIN SOD 30 MG/0.3 ML SYRINGE SC SCH (07:49)
[2022-09-26] MEDS: PANTOPRAZOLE 40 MG/10 ML VIAL INJ IV SCH (09:55)
[2022-09-26] MEDS: BUMETANIDE 1mg/4ml VIAL (0.25mg/ml) IV SCH ×2 (09:55→17:40)
[2022-09-26] MEDS: PIPERACILLIN-TAZOB 2.25GM 50 ML IV SCH ×2 (09:56→22:23)
[2022-09-26] MEDS: MULTIPLE VITAMIN TAB PO SCH (09:56)
[2022-09-26] MEDS: CALCIUM ACETATE 667 MG CAP NG SCH ×3 (09:56→16:53)
[2022-09-26] MEDS: ASPirin 81 mg TAB PO SCH (09:56)
[2022-09-26] MEDS: THIAMINE HCL 100 MG TAB PO SCH (09:56)
[2022-09-26] MEDS: CHOLECALCIFEROL (VITD3) 2,000 UNIT CAP/TAB NG SCH (09:56)
[2022-09-26] MEDS: METOPROLOL TARTRATE 25 MG TAB PO SCH ×2 (09:57→22:23)
[2022-09-26] MEDS: NOREPINEPHRINE 8 MG/250ML KIT 250 ML IV SCH (21:00)
[2022-09-26] MEDS: ATORVASTATIN 20 MG TAB PO SCH (22:24)
[2022-09-27] VITALS (105 sets, daily range): BP systolic 66–199; BP diastolic 42–177
[2022-09-27] MEDS: LEVALBUTEROL HCL 1.25 MG/3 ML NEB NEB SCH ×5 (00:18→23:59)
[2022-09-27] MEDS: IPRATROPIUM BROM 0.5 MG/2.5ML INH SOL NEB SCH ×5 (00:18→23:59)
[2022-09-27] MEDS: ACCU-CHEK COMFORT CURVE STRIP VI SCH ×4 (00:33→22:58)
[2022-09-27] MEDS: LACTULOSE 20Gm/30ML SOLN PO SCH ×4 (03:04→22:13)
[2022-09-27] MEDS: EPINEPHrine HCL 250 ML IV SCH ×4 (03:04→23:25)
[2022-09-27] MEDS: fentaNYL Drip 2500mCg/250mlNS 250 ML IV SCH (04:30)
[2022-09-27 04:33] LABS: Basophils # (auto) 0.1 10 ^3/uL (0-0.2); Basophils % (auto) 0.5 % (0.0-2.0); Eosinophils # (auto) 0 10 ^3/uL (0-0.8); Eosinophils % (auto) 0.2 % (0.0-7.0); Hematocrit 41.6 % (41.0-53.0); Hemoglobin 14.2 g/dL (13.5-17.5); Lymphocytes # (auto) 1.1 10 ^3/uL (0.4-5.4); Lymphocytes % (auto) 7.1 % (10.0-50.0); Mean Corpuscular Hemoglobin 26.8 pg (28.0-32.0); Mean Corpuscular Hgb Conc. 34.1 g/dL (32.0-36.0); Mean Corpuscular Volume 78.4 fL (80.0-100.0); Monocytes % (auto) 13.1 % (0.0-12.0); Neutrophils # (auto) 12.2 10 ^3/uL (1.6-8.6); Neutrophils % (auto) 79.1 % (37.0-80.0); Nucleated Red Blood Cells % 0.1 %; Red Blood Cells 5.31 10^6/uL (4.5-5.90); Red Cell Distribution Width 15.2 % (11.8-14.3); White Blood Cell 15.4 10^3/uL (4.4-10.8)
[2022-09-27 04:57] LABS: BUN/Creatinine Ratio 9.6 (10.0-20.0); Calcium 9.1 mg/dL (8.5-10.1)
[2022-09-27 05:14] LABS: Potassium 5.6 mmol/L (3.5-5.1)
[2022-09-27] MEDS: FREE WATER GT SCH ×3 (05:54→22:00)
[2022-09-27] MEDS ORDERED: SODIUM ZIRCONIUM CYCL 10 GM PAK PO ONE (06:00)
[2022-09-27] MEDS ORDERED: SODIUM BICARBONATE 8.4 % INJ 50ML VIAL IV ONE (06:30)
[2022-09-27] MEDS: METOCLOPRAMIDE HCL 5MG/ml INJ 2ml VIAL IV SCH ×3 (06:32→21:48)
[2022-09-27] MEDS: SODIUM CHLOR 0.9% PF (SALINE LOCK) 10ML VIAL/SYR IV SCH ×3 (06:33→22:13)
[2022-09-27] MEDS: SUCRALFATE 1 GM/10 ML ORAL SUSP PO SCH ×3 (06:33→15:57)
[2022-09-27] MEDS: BUMETANIDE 1mg/4ml VIAL (0.25mg/ml) IV SCH ×2 (06:33→21:22)
[2022-09-27] MEDS ORDERED: SODIUM CHL 0.9% 1000 ML BAG XX ONE (07:00)
[2022-09-27] MEDS ORDERED: CATHFLO ACTIVASE (ALTEPLASE) 2 MG VIAL IV ONE (11:00)
[2022-09-27] MEDS: LINEZOLID 600MG/300ML 300 ML IV SCH ×2 (11:12→21:33)
[2022-09-27] MEDS: PIPERACILLIN-TAZOB 2.25GM 50 ML IV SCH ×2 (11:12→21:48)
[2022-09-27] MEDS: CALCIUM ACETATE 667 MG CAP NG SCH ×3 (11:12→21:20)
[2022-09-27] MEDS: MULTIPLE VITAMIN TAB PO SCH (11:13)
[2022-09-27] MEDS: ENOXAPARIN SOD 30 MG/0.3 ML SYRINGE SC SCH (11:13)
[2022-09-27] MEDS: CHOLECALCIFEROL (VITD3) 2,000 UNIT CAP/TAB NG SCH (11:13)
[2022-09-27] MEDS: THIAMINE HCL 100 MG TAB PO SCH (11:13)
[2022-09-27] MEDS: PANTOPRAZOLE 40 MG/10 ML VIAL INJ IV SCH (11:13)
[2022-09-27] MEDS: METOPROLOL TARTRATE 25 MG TAB PO SCH ×2 (11:14→21:47)
[2022-09-27] MEDS: DOCUSATE SOD 100 MG CAP PO PRN (11:14)
[2022-09-27] MEDS: ASPirin 81 mg TAB PO SCH (11:14)
[2022-09-27] MEDS ORDERED: EPOETIN ALFA-EPBX 10,000 UNIT/1ML VIAL SC ONE (21:00)
[2022-09-27] MEDS: NOREPINEPHRINE 8 MG/250ML KIT 250 ML IV SCH (21:00)
[2022-09-27] MEDS: ATORVASTATIN 20 MG TAB PO SCH (21:47)
[2022-09-28] VITALS (86 sets, daily range): BP systolic 67–142; BP diastolic 41–99
[2022-09-28] MEDS: ACCU-CHEK COMFORT CURVE STRIP VI SCH ×3 (00:37→14:17)
[2022-09-28 02:39] LABS: Basophils # (auto) 0.1 10 ^3/uL (0-0.2); Eosinophils # (auto) 0.3 10 ^3/uL (0-0.8); Hemoglobin 13.6 g/dL (13.5-17.5); Lymphocytes # (auto) 2.1 10 ^3/uL (0.4-5.4); Monocytes # (auto) 2.6 10 ^3/uL (0-1.3)
[2022-09-28 02:41] LABS: Basophils % (auto) 0.6 % (0.0-2.0); Eosinophils % (auto) 2.3 % (0.0-7.0); Hematocrit 40.9 % (41.0-53.0); Lymphocytes % (auto) 13.8 % (10.0-50.0); Mean Corpuscular Hemoglobin 26.3 pg (28.0-32.0); Mean Corpuscular Hgb Conc. 33.2 g/dL (32.0-36.0); Mean Corpuscular Volume 79.1 fL (80.0-100.0); Monocytes % (auto) 17.4 % (0.0-12.0); Neutrophils # (auto) 9.9 10 ^3/uL (1.6-8.6); Neutrophils % (auto) 65.9 % (37.0-80.0); Red Blood Cells 5.17 10^6/uL (4.5-5.90); Red Cell Distribution Width 15.1 % (11.8-14.3)
[2022-09-28 02:47] LABS: BUN/Creatinine Ratio 10.4 (10.0-20.0); Calcium 9.1 mg/dL (8.5-10.1); Magnesium 3.3 mg/dL (1.6-2.6); Potassium 3.7 mmol/L (3.5-5.1)
[2022-09-28] MEDS: LACTULOSE 20Gm/30ML SOLN PO SCH ×4 (04:00→22:00)
[2022-09-28] MEDS: fentaNYL Drip 2500mCg/250mlNS 250 ML IV SCH (04:30)
[2022-09-28] MEDS: FREE WATER GT SCH ×2 (05:08→14:00)
[2022-09-28] MEDS: LORazepam 2MG/ML-1ML VIAL IV PRN ×2 (05:16→18:12)
[2022-09-28] MEDS ORDERED: CATHFLO ACTIVASE (ALTEPLASE) 2 MG VIAL IV ONE (05:45)
[2022-09-28] MEDS: LEVALBUTEROL HCL 1.25 MG/3 ML NEB NEB SCH ×3 (05:59→19:00)
[2022-09-28] MEDS: IPRATROPIUM BROM 0.5 MG/2.5ML INH SOL NEB SCH ×3 (05:59→19:00)
[2022-09-28] MEDS: EPINEPHrine HCL 250 ML IV SCH ×3 (06:05→19:25)
[2022-09-28] MEDS: SODIUM CHLOR 0.9% PF (SALINE LOCK) 10ML VIAL/SYR IV SCH ×3 (06:31→22:05)
[2022-09-28] MEDS: METOCLOPRAMIDE HCL 5MG/ml INJ 2ml VIAL IV SCH ×3 (06:34→22:14)
[2022-09-28] MEDS ORDERED: SODIUM CHL 0.9% 1000 ML BAG XX ONE (07:00)
[2022-09-28] MEDS: SUCRALFATE 1 GM/10 ML ORAL SUSP PO SCH ×3 (07:00→17:00)
[2022-09-28] MEDS: CALCIUM ACETATE 667 MG CAP NG SCH ×2 (08:00→12:00)
[2022-09-28] MEDS ORDERED: AMIODARONE HCL 150 MG in D5W 5% 100 ML IV ONE (09:00)
[2022-09-28] MEDS ORDERED: AMIODARONE 450mg/250ml AE 250 ML IV SCH (09:15)
[2022-09-28] MEDS: MULTIPLE VITAMIN TAB PO SCH (10:00)
[2022-09-28] MEDS: METOPROLOL TARTRATE 25 MG TAB PO SCH ×2 (10:00→22:00)
[2022-09-28] MEDS: ASPirin 81 mg TAB PO SCH (10:00)
[2022-09-28] MEDS: THIAMINE HCL 100 MG TAB PO SCH (10:00)
[2022-09-28] MEDS: CHOLECALCIFEROL (VITD3) 2,000 UNIT CAP/TAB NG SCH (10:00)
[2022-09-28] MEDS: ENOXAPARIN SOD 30 MG/0.3 ML SYRINGE SC SCH (10:38)
[2022-09-28] MEDS: LINEZOLID 600MG/300ML 300 ML IV SCH ×2 (10:48→22:07)
[2022-09-28] MEDS: PIPERACILLIN-TAZOB 2.25GM 50 ML IV SCH ×2 (11:07→22:14)
[2022-09-28] MEDS: PANTOPRAZOLE 40 MG/10 ML VIAL INJ IV SCH (14:27)
[2022-09-28] MEDS: AMIODARONE 450mg/250ml AE 250 ML IV SCH ×2 (16:15→19:20)
[2022-09-28] MEDS: BUMETANIDE 1mg/4ml VIAL (0.25mg/ml) IV SCH (18:08)
[2022-09-28] MEDS ORDERED: EPOETIN ALFA-EPBX 10,000 UNIT/1ML VIAL SC ONE (21:00)
[2022-09-28] MEDS: NOREPINEPHRINE 8 MG/250ML KIT 250 ML IV SCH (21:00)
[2022-09-28] MEDS: ATORVASTATIN 20 MG TAB PO SCH (22:00)
[2022-09-28] MEDS: VALPROATE INJ 250 MG in SODIUM CHL 0.9% 50 ML IV SCH (22:15)
[2022-09-29] VITALS (96 sets, daily range): BP systolic 96–284; BP diastolic 48–234
[2022-09-29] MEDS: LORazepam 2MG/ML-1ML VIAL IV PRN ×3 (00:04→15:22)
[2022-09-29] MEDS: LEVALBUTEROL HCL 1.25 MG/3 ML NEB NEB SCH ×5 (01:03→23:59)
[2022-09-29] MEDS: IPRATROPIUM BROM 0.5 MG/2.5ML INH SOL NEB SCH ×5 (01:03→23:59)
[2022-09-29] MEDS: EPINEPHrine HCL 250 ML IV SCH ×4 (02:05→21:19)
[2022-09-29] MEDS: LACTULOSE 20Gm/30ML SOLN PO SCH ×4 (04:00→21:19)
[2022-09-29 04:20] LABS: Hemoglobin 13.3 g/dL (13.5-17.5)
[2022-09-29 04:23] LABS: Basophils # (auto) 0.1 10 ^3/uL (0-0.2); Basophils % (auto) 0.8 % (0.0-2.0); Eosinophils # (auto) 0.5 10 ^3/uL (0-0.8); Eosinophils % (auto) 3.5 % (0.0-7.0); Hematocrit 39.4 % (41.0-53.0); Lymphocytes % (auto) 13.1 % (10.0-50.0); Mean Corpuscular Hemoglobin 26.6 pg (28.0-32.0); Mean Corpuscular Hgb Conc. 33.7 g/dL (32.0-36.0); Mean Corpuscular Volume 78.8 fL (80.0-100.0); Monocytes # (auto) 2.8 10 ^3/uL (0-1.3); Neutrophils # (auto) 9.8 10 ^3/uL (1.6-8.6); Neutrophils % (auto) 64.3 % (37.0-80.0); Nucleated Red Blood Cells % 0.1 %; Red Cell Distribution Width 15.2 % (11.8-14.3); White Blood Cell 15.3 10^3/uL (4.4-10.8)
[2022-09-29 04:37] LABS: Calcium 8.8 mg/dL (8.5-10.1); Potassium 3.7 mmol/L (3.5-5.1)
[2022-09-29 04:41] LABS: BUN/Creatinine Ratio 8.9 (10.0-20.0)
[2022-09-29 04:56] LABS: Monocytes % (auto) 18.3 % (0.0-12.0)
[2022-09-29] MEDS: SODIUM CHLOR 0.9% PF (SALINE LOCK) 10ML VIAL/SYR IV SCH ×3 (05:37→21:25)
[2022-09-29] MEDS: METOCLOPRAMIDE HCL 5MG/ml INJ 2ml VIAL IV SCH ×3 (05:37→21:25)
[2022-09-29] MEDS: BUMETANIDE 1mg/4ml VIAL (0.25mg/ml) IV SCH ×2 (05:37→17:54)
[2022-09-29] MEDS: VALPROATE INJ 250 MG in SODIUM CHL 0.9% 50 ML IV SCH ×3 (05:50→21:25)
[2022-09-29] MEDS ORDERED: MORPHINE SULFATE INJ 2 MG/ml SYRG ONE (06:53)
[2022-09-29] MEDS: SUCRALFATE 1 GM/10 ML ORAL SUSP PO SCH ×3 (07:00→17:00)
[2022-09-29] MEDS: MORPHINE SULFATE INJ 2 MG/ml SYRG IM ONE ×2 (07:00→07:36)
[2022-09-29] MEDS: LORazepam 2MG/ML-1ML VIAL IM ONE ×2 (07:00→07:31)
[2022-09-29] MEDS: AMIODARONE 450mg/250ml AE 250 ML IV SCH (09:55)
[2022-09-29] MEDS: LINEZOLID 600MG/300ML 300 ML IV SCH ×2 (09:57→21:25)
[2022-09-29] MEDS: AMIODARONE HCL 200 MG TAB PO SCH (10:00)
[2022-09-29] MEDS: THIAMINE HCL 100 MG TAB PO SCH (10:00)
[2022-09-29] MEDS: METOPROLOL TARTRATE 25 MG TAB PO SCH ×4 (10:00→21:19)
[2022-09-29] MEDS: MULTIPLE VITAMIN TAB PO SCH (10:00)
[2022-09-29] MEDS: PANTOPRAZOLE 40 MG/10 ML VIAL INJ IV SCH (10:01)
[2022-09-29] MEDS: ENOXAPARIN SOD 120 MG/0.8 ML SYRINGE SC SCH (10:03)
[2022-09-29] MEDS: PIPERACILLIN-TAZOB 2.25GM 50 ML IV SCH ×2 (10:05→21:25)
[2022-09-29] MEDS: NOREPINEPHRINE 8 MG/250ML KIT 250 ML IV SCH (21:00)
[2022-09-29] MEDS: ATORVASTATIN 20 MG TAB PO SCH (21:19)
[2022-09-30] VITALS (96 sets, daily range): BP systolic 98–152; BP diastolic 53–122
[2022-09-30] MEDS: AMIODARONE 450mg/250ml AE 250 ML IV SCH (01:38)
[2022-09-30] MEDS: LACTULOSE 20Gm/30ML SOLN PO SCH ×4 (04:00→21:34)
[2022-09-30 04:26] LABS: Basophils # (auto) 0.1 10 ^3/uL (0-0.2); Eosinophils # (auto) 0.5 10 ^3/uL (0-0.8); Hemoglobin 12.5 g/dL (13.5-17.5)
[2022-09-30 04:28] LABS: Basophils % (auto) 0.7 % (0.0-2.0); Eosinophils % (auto) 4.3 % (0.0-7.0); Hematocrit 36.6 % (41.0-53.0); Lymphocytes # (auto) 1.8 10 ^3/uL (0.4-5.4); Lymphocytes % (auto) 16.7 % (10.0-50.0); Mean Corpuscular Hemoglobin 27.1 pg (28.0-32.0); Mean Corpuscular Hgb Conc. 34.3 g/dL (32.0-36.0); Monocytes # (auto) 1.7 10 ^3/uL (0-1.3); Monocytes % (auto) 16.2 % (0.0-12.0); Neutrophils # (auto) 6.6 10 ^3/uL (1.6-8.6); Neutrophils % (auto) 62.1 % (37.0-80.0); Red Blood Cells 4.63 10^6/uL (4.5-5.90); Red Cell Distribution Width 14.8 % (11.8-14.3); White Blood Cell 10.7 10^3/uL (4.4-10.8)
[2022-09-30] MEDS: EPINEPHrine HCL 250 ML IV SCH (04:45)
[2022-09-30 05:01] LABS: BUN/Creatinine Ratio 8.7 (10.0-20.0); Calcium 8.9 mg/dL (8.5-10.1); Potassium 3.4 mmol/L (3.5-5.1)
[2022-09-30] MEDS: SODIUM CHLOR 0.9% PF (SALINE LOCK) 10ML VIAL/SYR IV SCH ×3 (06:18→21:34)
[2022-09-30] MEDS: BUMETANIDE 1mg/4ml VIAL (0.25mg/ml) IV SCH ×2 (06:18→17:58)
[2022-09-30] MEDS: VALPROATE INJ 250 MG in SODIUM CHL 0.9% 50 ML IV SCH (06:18)
[2022-09-30] MEDS: METOCLOPRAMIDE HCL 5MG/ml INJ 2ml VIAL IV SCH ×3 (06:18→21:21)
[2022-09-30] MEDS: LEVALBUTEROL HCL 1.25 MG/3 ML NEB NEB SCH ×4 (06:36→23:58)
[2022-09-30] MEDS: IPRATROPIUM BROM 0.5 MG/2.5ML INH SOL NEB SCH ×4 (06:37→23:58)
[2022-09-30] MEDS: cefTRIAXone 1GM/50ML D5W 50 ML IV SCH (08:24)
[2022-09-30] MEDS: LORazepam 2MG/ML-1ML VIAL IV PRN ×2 (09:39→12:21)
[2022-09-30] MEDS: ENOXAPARIN SOD 120 MG/0.8 ML SYRINGE SC SCH (09:44)
[2022-09-30] MEDS: PANTOPRAZOLE 40 MG/10 ML VIAL INJ IV SCH (09:44)
[2022-09-30] MEDS: AMIODARONE HCL 200 MG TAB PO SCH (09:44)
[2022-09-30] MEDS: THIAMINE HCL 100 MG TAB PO SCH (09:45)
[2022-09-30] MEDS: MULTIPLE VITAMIN TAB PO SCH (09:45)
[2022-09-30] MEDS: METOPROLOL TARTRATE 25 MG TAB PO SCH ×2 (09:45→21:20)
[2022-09-30] MEDS: SODIUM CHL 0.9% IV SCH ×2 (15:25→21:22)
[2022-09-30] MEDS: VALPROATE IV SCH ×2 (15:25→21:22)
[2022-09-30] MEDS: NOREPINEPHRINE 8 MG/250ML KIT 250 ML IV SCH (21:00)
[2022-09-30] MEDS: ATORVASTATIN 20 MG TAB PO SCH (21:20)
[2022-10-01] VITALS (104 sets, daily range): BP systolic 78–150; BP diastolic 33–107
[2022-10-01] MEDS: LORazepam 2MG/ML-1ML VIAL IV PRN ×3 (00:25→23:58)
[2022-10-01] MEDS: AMIODARONE 450mg/250ml AE 250 ML IV SCH ×2 (03:15→18:15)
[2022-10-01] MEDS: LACTULOSE 20Gm/30ML SOLN PO SCH (04:00)
[2022-10-01 04:05] LABS: Basophils # (auto) 0.1 10 ^3/uL (0-0.2); Basophils % (auto) 1.1 % (0.0-2.0); Eosinophils # (auto) 0.3 10 ^3/uL (0-0.8); Eosinophils % (auto) 3.7 % (0.0-7.0); Hematocrit 37.9 % (41.0-53.0); Lymphocytes # (auto) 1.4 10 ^3/uL (0.4-5.4); Lymphocytes % (auto) 14.8 % (10.0-50.0); Mean Corpuscular Hemoglobin 27.2 pg (28.0-32.0); Mean Corpuscular Hgb Conc. 34.2 g/dL (32.0-36.0); Mean Corpuscular Volume 79.4 fL (80.0-100.0); Monocytes # (auto) 1.5 10 ^3/uL (0-1.3); Monocytes % (auto) 15.9 % (0.0-12.0); Neutrophils # (auto) 6.1 10 ^3/uL (1.6-8.6); Neutrophils % (auto) 64.5 % (37.0-80.0); Red Blood Cells 4.77 10^6/uL (4.5-5.90); Red Cell Distribution Width 15.1 % (11.8-14.3); White Blood Cell 9.4 10^3/uL (4.4-10.8)
[2022-10-01 04:19] LABS: BUN/Creatinine Ratio 10.5 (10.0-20.0); Calcium 8.8 mg/dL (8.5-10.1); Potassium 3.5 mmol/L (3.5-5.1)
[2022-10-01] MEDS: SODIUM CHLOR 0.9% PF (SALINE LOCK) 10ML VIAL/SYR IV SCH ×3 (05:29→21:46)
[2022-10-01] MEDS: BUMETANIDE 1mg/4ml VIAL (0.25mg/ml) IV SCH ×2 (05:29→18:00)
[2022-10-01] MEDS: METOCLOPRAMIDE HCL 5MG/ml INJ 2ml VIAL IV SCH ×3 (05:29→21:45)
[2022-10-01] MEDS: SODIUM CHL 0.9% IV SCH ×3 (05:33→22:09)
[2022-10-01] MEDS: VALPROATE IV SCH ×3 (05:33→22:09)
[2022-10-01] MEDS: LEVALBUTEROL HCL 1.25 MG/3 ML NEB NEB SCH ×3 (05:45→18:59)
[2022-10-01] MEDS: IPRATROPIUM BROM 0.5 MG/2.5ML INH SOL NEB SCH ×3 (05:45→18:59)
[2022-10-01] MEDS ORDERED: LACTULOSE 20Gm/30ML SOLN PO PRN (08:00)
[2022-10-01] MEDS: PANTOPRAZOLE 40 MG/10 ML VIAL INJ IV SCH (10:05)
[2022-10-01] MEDS: cefTRIAXone 1GM/50ML D5W 50 ML IV SCH (10:05)
[2022-10-01] MEDS: MULTIPLE VITAMIN TAB PO SCH (10:06)
[2022-10-01] MEDS: METOPROLOL TARTRATE 25 MG TAB PO SCH ×2 (10:06→21:46)
[2022-10-01] MEDS: THIAMINE HCL 100 MG TAB PO SCH (10:06)
[2022-10-01] MEDS: ENOXAPARIN SOD 120 MG/0.8 ML SYRINGE SC SCH (10:07)
[2022-10-01] MEDS: AMIODARONE HCL 200 MG TAB PO SCH (10:07)
[2022-10-01] MEDS: NOREPINEPHRINE 8 MG/250ML KIT 250 ML IV SCH (15:28)
[2022-10-01] MEDS: ACETAMINOPHEN 325 MG TAB PO PRN (20:35)
[2022-10-01] MEDS ORDERED: EPOETIN ALFA-EPBX 4,000 UNIT/ML VIAL SC ONE (21:00)
[2022-10-01] MEDS: ATORVASTATIN 20 MG TAB PO SCH (21:46)
[2022-10-02] VITALS (100 sets, daily range): BP systolic 68–285; BP diastolic 45–187
[2022-10-02] MEDS: LEVALBUTEROL HCL 1.25 MG/3 ML NEB NEB SCH ×4 (00:42→18:25)
[2022-10-02] MEDS: IPRATROPIUM BROM 0.5 MG/2.5ML INH SOL NEB SCH ×4 (00:42→18:25)
[2022-10-02 04:09] LABS: Basophils # (auto) 0.1 10 ^3/uL (0-0.2); Eosinophils # (auto) 0.1 10 ^3/uL (0-0.8); Monocytes # (auto) 1.9 10 ^3/uL (0-1.3)
[2022-10-02 04:13] LABS: Basophils % (auto) 0.9 % (0.0-2.0); Eosinophils % (auto) 0.6 % (0.0-7.0); Hematocrit 38.2 % (41.0-53.0); Hemoglobin 12.9 g/dL (13.5-17.5); Lymphocytes # (auto) 2.1 10 ^3/uL (0.4-5.4); Lymphocytes % (auto) 17.2 % (10.0-50.0); Mean Corpuscular Hemoglobin 26.6 pg (28.0-32.0); Mean Corpuscular Hgb Conc. 33.7 g/dL (32.0-36.0); Monocytes % (auto) 15.6 % (0.0-12.0); Neutrophils % (auto) 65.7 % (37.0-80.0); Red Blood Cells 4.84 10^6/uL (4.5-5.90); Red Cell Distribution Width 14.9 % (11.8-14.3); White Blood Cell 12.2 10^3/uL (4.4-10.8)
[2022-10-02 04:23] LABS: Potassium 3.9 mmol/L (3.5-5.1)
[2022-10-02 04:25] LABS: BUN/Creatinine Ratio 9.9 (10.0-20.0); Phosphorus 6.2 mg/dL (2.5-4.90)
[2022-10-02] MEDS: VALPROATE IV SCH ×4 (05:41→22:41)
[2022-10-02] MEDS: SODIUM CHL 0.9% IV SCH ×4 (05:41→22:41)
[2022-10-02] MEDS: METOCLOPRAMIDE HCL 5MG/ml INJ 2ml VIAL IV SCH ×3 (05:41→21:02)
[2022-10-02] MEDS: BUMETANIDE 1mg/4ml VIAL (0.25mg/ml) IV SCH ×2 (05:43→18:09)
[2022-10-02] MEDS: SODIUM CHLOR 0.9% PF (SALINE LOCK) 10ML VIAL/SYR IV SCH ×3 (05:45→22:28)
[2022-10-02] MEDS: THIAMINE HCL 100 MG TAB PO SCH (09:03)
[2022-10-02] MEDS: MULTIPLE VITAMIN TAB PO SCH (09:03)
[2022-10-02] MEDS: cefTRIAXone 1GM/50ML D5W 50 ML IV SCH (09:03)
[2022-10-02] MEDS: PANTOPRAZOLE 40 MG/10 ML VIAL INJ IV SCH (09:04)
[2022-10-02] MEDS: AMIODARONE HCL 200 MG TAB PO SCH (09:04)
[2022-10-02] MEDS: AMIODARONE 450mg/250ml AE 250 ML IV SCH (09:04)
[2022-10-02] MEDS: ENOXAPARIN SOD 120 MG/0.8 ML SYRINGE SC SCH (09:04)
[2022-10-02] MEDS: PIPERACILLIN-TAZOB 2.25GM 50 ML IV SCH ×2 (10:40→23:37)
[2022-10-02] MEDS: METOPROLOL TARTRATE 50 MG TAB PO SCH ×2 (10:40→22:35)
[2022-10-02] MEDS ORDERED: SODIUM CHL 0.9% 1000 ML BAG XX ONE (13:30)
[2022-10-02] MEDS: NOREPINEPHRINE 8 MG/250ML KIT 250 ML IV SCH (21:00)
[2022-10-02] MEDS: ATORVASTATIN 20 MG TAB PO SCH (22:34)
[2022-10-03] VITALS (33 sets, daily range): BP systolic 88–142; BP diastolic 38–94
[2022-10-03] MEDS: LEVALBUTEROL HCL 1.25 MG/3 ML NEB NEB SCH ×4 (00:15→19:15)
[2022-10-03] MEDS: IPRATROPIUM BROM 0.5 MG/2.5ML INH SOL NEB SCH ×4 (00:15→19:15)
[2022-10-03 05:21] LABS: Basophils # (auto) 0.1 10 ^3/uL (0-0.2); Basophils % (auto) 0.9 % (0.0-2.0); Eosinophils # (auto) 0.1 10 ^3/uL (0-0.8); Eosinophils % (auto) 1.1 % (0.0-7.0); Hemoglobin 12.2 g/dL (13.5-17.5); Lymphocytes # (auto) 1.8 10 ^3/uL (0.4-5.4); Lymphocytes % (auto) 17.7 % (10.0-50.0); Mean Corpuscular Hgb Conc. 33.9 g/dL (32.0-36.0); Mean Corpuscular Volume 79.6 fL (80.0-100.0); Monocytes # (auto) 1.8 10 ^3/uL (0-1.3); Monocytes % (auto) 17.7 % (0.0-12.0); Neutrophils # (auto) 6.3 10 ^3/uL (1.6-8.6); Neutrophils % (auto) 62.6 % (37.0-80.0); Red Blood Cells 4.53 10^6/uL (4.5-5.90); Red Cell Distribution Width 15.1 % (11.8-14.3)
[2022-10-03 05:40] LABS: BUN/Creatinine Ratio 10.6 (10.0-20.0); Calcium 8.4 mg/dL (8.5-10.1); Potassium 3.3 mmol/L (3.5-5.1)
[2022-10-03] MEDS: METOCLOPRAMIDE HCL 5MG/ml INJ 2ml VIAL IV SCH ×3 (06:00→22:42)
[2022-10-03] MEDS: SODIUM CHLOR 0.9% PF (SALINE LOCK) 10ML VIAL/SYR IV SCH ×3 (06:24→22:33)
[2022-10-03] MEDS: BUMETANIDE 1mg/4ml VIAL (0.25mg/ml) IV SCH ×2 (06:24→18:04)
[2022-10-03] MEDS: SODIUM CHL 0.9% IV SCH ×3 (08:01→22:41)
[2022-10-03] MEDS: VALPROATE IV SCH ×3 (08:01→22:41)
[2022-10-03] MEDS: ENOXAPARIN SOD 120 MG/0.8 ML SYRINGE SC SCH (09:23)
[2022-10-03] MEDS: PANTOPRAZOLE 40 MG/10 ML VIAL INJ IV SCH (09:23)
[2022-10-03] MEDS: THIAMINE HCL 100 MG TAB PO SCH (09:24)
[2022-10-03] MEDS: MULTIPLE VITAMIN TAB PO SCH (09:24)
[2022-10-03] MEDS: METOPROLOL TARTRATE 50 MG TAB PO SCH ×2 (09:24→22:59)
[2022-10-03] MEDS: AMIODARONE HCL 200 MG TAB PO SCH (09:24)
[2022-10-03] MEDS ORDERED: POTASSIUM EFFERVESENT TAB 25 MEQ GT ONE (10:15)
[2022-10-03] MEDS: PIPERACILLIN-TAZOB 2.25GM 50 ML IV SCH ×2 (11:19→22:40)
[2022-10-03] MEDS: NOREPINEPHRINE 8 MG/250ML KIT 250 ML IV SCH (21:00)
[2022-10-03] MEDS: ATORVASTATIN 20 MG TAB PO SCH (22:43)
[2022-10-04] VITALS (54 sets, daily range): BP systolic 82–144; BP diastolic 47–93
[2022-10-04] MEDS: LEVALBUTEROL HCL 1.25 MG/3 ML NEB NEB SCH ×4 (00:53→18:33)
[2022-10-04] MEDS: IPRATROPIUM BROM 0.5 MG/2.5ML INH SOL NEB SCH ×4 (00:53→18:33)
[2022-10-04 03:56] LABS: INR 1.21 (0.9-1.15); Partial Thromboplastin Time 29.1 sec (24.6-33.4)
[2022-10-04 04:25] LABS: Albumin 2.5 g/dL (3.4-5.0); BUN/Creatinine Ratio 12.8 (10.0-20.0); Calcium 8.9 mg/dL (8.5-10.1)
[2022-10-04 04:28] LABS: Bilirubin, Total 0.6 mg/dL (0.2-1.0); Total Protein 7.2 g/dL (6.4-8.2)
[2022-10-04] MEDS: SODIUM CHL 0.9% IV SCH ×3 (06:09→21:36)
[2022-10-04] MEDS: VALPROATE IV SCH ×3 (06:09→21:36)
[2022-10-04] MEDS: BUMETANIDE 1mg/4ml VIAL (0.25mg/ml) IV SCH ×2 (06:13→17:55)
[2022-10-04] MEDS: SODIUM CHLOR 0.9% PF (SALINE LOCK) 10ML VIAL/SYR IV SCH ×3 (06:14→22:05)
[2022-10-04] MEDS: METOCLOPRAMIDE HCL 5MG/ml INJ 2ml VIAL IV SCH ×3 (06:15→21:37)
[2022-10-04] MEDS ORDERED: SODIUM CHL 0.9% 1000 ML BAG XX ONE (07:00)
[2022-10-04] MEDS ORDERED: ALBUMIN 25% 100 ML IV ONE (08:30)
[2022-10-04] MEDS: NOREPINEPHRINE 8 MG/250ML KIT 250 ML IV SCH (08:52)
[2022-10-04] MEDS: LORazepam 2MG/ML-1ML VIAL IV PRN (09:00)
[2022-10-04] MEDS: PIPERACILLIN-TAZOB 2.25GM 50 ML IV SCH ×2 (10:00→21:36)
[2022-10-04] MEDS: AMIODARONE HCL 200 MG TAB PO SCH (10:23)
[2022-10-04] MEDS: ENOXAPARIN SOD 120 MG/0.8 ML SYRINGE SC SCH (10:23)
[2022-10-04] MEDS: MULTIPLE VITAMIN TAB PO SCH (10:23)
[2022-10-04] MEDS: THIAMINE HCL 100 MG TAB PO SCH (10:23)
[2022-10-04] MEDS: PANTOPRAZOLE 40 MG/10 ML VIAL INJ IV SCH (10:23)
[2022-10-04] MEDS ORDERED: LORazepam 2MG/ML-1ML VIAL IV PRN (11:15)
[2022-10-04] MEDS ORDERED: MORPHINE SULFATE 4 MG/ML SYR/VIAL IV PRN (11:15)
[2022-10-04] MEDS: METOPROLOL TARTRATE 50 MG TAB PO SCH ×2 (12:38→21:40)
[2022-10-04] MEDS ORDERED: EPOETIN ALFA-EPBX 10,000 UNIT/1ML VIAL SC ONE (21:00)
[2022-10-04] MEDS: ATORVASTATIN 20 MG TAB PO SCH (21:37)
[2022-10-05] VITALS (68 sets, daily range): BP systolic 88–163; BP diastolic 53–93
[2022-10-05] MEDS: LEVALBUTEROL HCL 1.25 MG/3 ML NEB NEB SCH ×4 (00:18→18:10)
[2022-10-05] MEDS: IPRATROPIUM BROM 0.5 MG/2.5ML INH SOL NEB SCH ×4 (00:18→18:10)
[2022-10-05 03:42] LABS: Basophils # (auto) 0.1 10 ^3/uL (0-0.2); Eosinophils # (auto) 0.2 10 ^3/uL (0-0.8); Eosinophils % (auto) 2.9 % (0.0-7.0); Hemoglobin 11.1 g/dL (13.5-17.5); Lymphocytes # (auto) 1.2 10 ^3/uL (0.4-5.4); Mean Corpuscular Hemoglobin 26.9 pg (28.0-32.0); Mean Corpuscular Hgb Conc. 33.6 g/dL (32.0-36.0); Mean Corpuscular Volume 80.1 fL (80.0-100.0); Monocytes # (auto) 0.9 10 ^3/uL (0-1.3); Neutrophils % (auto) 63.1 % (37.0-80.0); Nucleated Red Blood Cells % 0.1 %; Red Blood Cells 4.11 10^6/uL (4.5-5.90); Red Cell Distribution Width 14.8 % (11.8-14.3); White Blood Cell 6.4 10^3/uL (4.4-10.8)
[2022-10-05 03:57] LABS: BUN/Creatinine Ratio 16.5 (10.0-20.0); Calcium 9.1 mg/dL (8.5-10.1); Potassium 3.2 mmol/L (3.5-5.1)
[2022-10-05] MEDS ORDERED: POTASSIUM CHL 20MEQ/100ML 100 ML IV ONE (05:30)
[2022-10-05] MEDS: METOCLOPRAMIDE HCL 5MG/ml INJ 2ml VIAL IV SCH ×3 (05:44→21:42)
[2022-10-05] MEDS: SODIUM CHL 0.9% IV SCH ×3 (05:44→21:44)
[2022-10-05] MEDS: VALPROATE IV SCH ×3 (05:44→21:44)
[2022-10-05] MEDS: SODIUM CHLOR 0.9% PF (SALINE LOCK) 10ML VIAL/SYR IV SCH ×3 (05:45→21:45)
[2022-10-05] MEDS: BUMETANIDE 1mg/4ml VIAL (0.25mg/ml) IV SCH ×2 (05:45→18:14)
[2022-10-05] MEDS: THIAMINE HCL 100 MG TAB PO SCH (10:07)
[2022-10-05] MEDS: PANTOPRAZOLE 40 MG/10 ML VIAL INJ IV SCH (10:07)
[2022-10-05] MEDS: MULTIPLE VITAMIN TAB PO SCH (10:07)
[2022-10-05] MEDS: AMIODARONE HCL 200 MG TAB PO SCH (10:08)
[2022-10-05] MEDS: METOPROLOL TARTRATE 50 MG TAB PO SCH ×2 (10:08→21:45)
[2022-10-05] MEDS: PIPERACILLIN-TAZOB 2.25GM 50 ML IV SCH ×2 (10:09→21:42)
[2022-10-05] MEDS: ENOXAPARIN SOD 120 MG/0.8 ML SYRINGE SC SCH (10:10)
[2022-10-05] MEDS: NOREPINEPHRINE 8 MG/250ML KIT 250 ML IV SCH (21:00)
[2022-10-05] MEDS: ATORVASTATIN 20 MG TAB PO SCH (21:44)
[2022-10-06] VITALS (53 sets, daily range): BP systolic 95–134; BP diastolic 54–94
[2022-10-06] MEDS: IPRATROPIUM BROM 0.5 MG/2.5ML INH SOL NEB SCH ×4 (00:09→19:24)
[2022-10-06] MEDS: LEVALBUTEROL HCL 1.25 MG/3 ML NEB NEB SCH ×4 (00:09→19:25)
[2022-10-06] MEDS: ACETAMINOPHEN 325 MG TAB PO PRN (01:59)
[2022-10-06] MEDS: SODIUM CHL 0.9% IV SCH ×3 (05:38→21:48)
[2022-10-06] MEDS: VALPROATE IV SCH ×3 (05:38→21:48)
[2022-10-06] MEDS: METOCLOPRAMIDE HCL 5MG/ml INJ 2ml VIAL IV SCH ×3 (05:38→21:48)
[2022-10-06] MEDS: BUMETANIDE 1mg/4ml VIAL (0.25mg/ml) IV SCH ×2 (05:39→17:46)
[2022-10-06] MEDS: SODIUM CHLOR 0.9% PF (SALINE LOCK) 10ML VIAL/SYR IV SCH ×3 (05:39→21:49)
[2022-10-06] MEDS: PIPERACILLIN-TAZOB 2.25GM 50 ML IV SCH ×2 (09:45→21:49)
[2022-10-06] MEDS: PANTOPRAZOLE 40 MG/10 ML VIAL INJ IV SCH (09:45)
[2022-10-06] MEDS: ENOXAPARIN SOD 120 MG/0.8 ML SYRINGE SC SCH (09:46)
[2022-10-06] MEDS: THIAMINE HCL 100 MG TAB PO SCH (09:46)
[2022-10-06] MEDS: MULTIPLE VITAMIN TAB PO SCH (09:46)
[2022-10-06] MEDS: AMIODARONE HCL 200 MG TAB PO SCH (09:47)
[2022-10-06] MEDS: METOPROLOL TARTRATE 50 MG TAB PO SCH ×2 (09:47→21:49)
[2022-10-06] MEDS: MORPHINE SULFATE INJ 2 MG/ml SYRG IV PRN ×2 (20:10→21:43)
[2022-10-06] MEDS: LORazepam 2MG/ML-1ML VIAL IV PRN ×2 (20:11→21:42)
[2022-10-06] MEDS: ATORVASTATIN 20 MG TAB PO SCH (21:49)
[2022-10-07] VITALS (10 sets, daily range): BP systolic 99–125; BP diastolic 59–92
[2022-10-07] MEDS: SODIUM CHL 0.9% IV SCH (06:00)
[2022-10-07] MEDS: VALPROATE IV SCH (06:00)
[2022-10-07] MEDS: BUMETANIDE 1mg/4ml VIAL (0.25mg/ml) IV SCH (06:00)
[2022-10-07] MEDS: METOCLOPRAMIDE HCL 5MG/ml INJ 2ml VIAL IV SCH (06:00)
[2022-10-07] MEDS: SODIUM CHLOR 0.9% PF (SALINE LOCK) 10ML VIAL/SYR IV SCH (06:12)
[2022-10-08 05:00] VITALS: BP 110/75
[2022-10-08 08:38] VITALS: BP 117/76
[2022-10-08 12:33] VITALS: BP 110/76
[2022-10-08 16:43] VITALS: BP 126/88
[2022-10-08 22:00] VITALS: BP_SYST 122; BP_SYST 99; BP_DIAS 53; BP_DIAS 80
[2022-10-09 05:00] VITALS: BP 110/79
[2022-10-09 09:00] VITALS: BP 124/77
[2022-10-09 13:00] VITALS: BP 121/80
[2022-10-09 17:00] VITALS: BP 114/87
[2022-10-09 22:00] VITALS: BP 151/90
[2022-10-10 05:00] VITALS: BP 139/92
[2022-10-10 08:59] VITALS: BP 134/86
[2022-10-10 12:58] VITALS: BP 136/92
[2022-10-10 17:00] VITALS: BP 103/79
[2022-10-10 21:56] VITALS: BP 134/84
[2022-10-11 05:00] VITALS: BP 135/101
[2022-10-11 08:38] VITALS: BP 114/77
[2022-10-11 12:34] VITALS: BP 125/53
[2022-10-11 16:55] VITALS: BP 120/65
[2022-10-11 22:00] VITALS: BP 105/70
[2022-10-12 05:00] VITALS: BP 115/71
[2022-10-12 08:00] VITALS: BP 110/80
[2022-10-12 09:00] VITALS: BP 110/86
[2022-10-12 13:00] VITALS: BP 112/78
[2022-10-12 17:00] VITALS: BP 124/89
[2022-10-12 21:55] VITALS: BP 126/64
[2022-10-13 05:00] VITALS: BP 112/82
[2022-10-13 09:00] VITALS: BP 115/65
[2022-10-13 12:56] VITALS: BP 111/75
[2022-10-13 17:00] VITALS: BP 92/65
[2022-10-13] MEDS: LORazepam 2MG/ML-1ML VIAL IV PRN (20:01)
[2022-10-13 22:00] VITALS: BP 107/68
[2022-10-14 05:00] VITALS: BP 50/27
== END 2022-10-14 05:14 | DRG 130 ==
LOC: ER 22:52 → TELE 09-14 04:29 → ICU WEST 09-15 07:50 → WEST WING 10-07 10:46
PROVIDERS: ADMIT Nurse Practitioner Family; ATTEND Internal Medicine Pulmonary Disease
PROC: 5A09357 Assistance with Respiratory Ventilation, Less than 24 Consecutive Hours, Continuous Positive Airway Pressure (ICD-10-PCS; 2022-09-14)
PROC: 5A1955Z Respiratory Ventilation, Greater than 96 Consecutive Hours (ICD-10-PCS; principal; 2022-09-15)
PROC: 0BH17EZ Insertion of Endotracheal Airway into Trachea, Via Natural or Artificial Opening (ICD-10-PCS; 2022-09-15)
PROC: 5A12012 Performance of Cardiac Output, Single, Manual (ICD-10-PCS; 2022-09-15)
PROC: 4A133B1 Monitoring of Arterial Pressure, Peripheral, Percutaneous Approach (ICD-10-PCS; 2022-09-15)
PROC: 02HV33Z Insertion of Infusion Device into Superior Vena Cava, Percutaneous Approach (ICD-10-PCS; 2022-09-16)
PROC: B548ZZA Ultrasonography of Superior Vena Cava, Guidance (ICD-10-PCS; 2022-09-16)
PROC: 5A1D70Z Performance of Urinary Filtration, Intermittent, Less than 6 Hours Per Day (ICD-10-PCS; 2022-09-17)
PROC: 5A1D70Z Performance of Urinary Filtration, Intermittent, Less than 6 Hours Per Day (ICD-10-PCS; 2022-09-20)
PROC: 5A1D70Z Performance of Urinary Filtration, Intermittent, Less than 6 Hours Per Day (ICD-10-PCS; 2022-09-24)
PROC: 5A1D70Z Performance of Urinary Filtration, Intermittent, Less than 6 Hours Per Day (ICD-10-PCS; 2022-09-25)
PROC: 5A1D70Z Performance of Urinary Filtration, Intermittent, Less than 6 Hours Per Day (ICD-10-PCS; 2022-09-26)
PROC: 5A1D70Z Performance of Urinary Filtration, Intermittent, Less than 6 Hours Per Day (ICD-10-PCS; 2022-09-27)
PROC: 5A1D70Z Performance of Urinary Filtration, Intermittent, Less than 6 Hours Per Day (ICD-10-PCS; 2022-09-28)
PROC: 02HV33Z Insertion of Infusion Device into Superior Vena Cava, Percutaneous Approach (ICD-10-PCS; 2022-09-29)
PROC: 5A1D70Z Performance of Urinary Filtration, Intermittent, Less than 6 Hours Per Day (ICD-10-PCS; 2022-10-01)
PROC: 5A1D70Z Performance of Urinary Filtration, Intermittent, Less than 6 Hours Per Day (ICD-10-PCS; 2022-10-02)
PROC: 5A1D70Z Performance of Urinary Filtration, Intermittent, Less than 6 Hours Per Day (ICD-10-PCS; 2022-10-04)
DX: J96.01 Acute respiratory failure with hypoxia (principal); I46.9 Cardiac arrest, cause unspecified; K72.00 Acute and subacute hepatic failure without coma; N17.0 Acute kidney failure with tubular necrosis; R57.0 Cardiogenic shock; G93.41 Metabolic encephalopathy; K83.1 Obstruction of bile duct; I48.92 Unspecified atrial flutter; N18.9 Chronic kidney disease, unspecified; I13.0 Hypertensive heart and chronic kidney disease with heart failure and stage 1 through stage 4 chronic kidney disease, or unspecified chronic kidney disease; I50.23 Acute on chronic systolic (congestive) heart failure; I42.0 Dilated cardiomyopathy; F10.239 Alcohol dependence with withdrawal, unspecified; T40.411A Poisoning by fentanyl or fentanyl analogs, accidental (unintentional), initial encounter; Z66 Do not resuscitate; G93.1 Anoxic brain damage, not elsewhere classified; I48.0 Paroxysmal atrial fibrillation; Z79.01 Long term (current) use of anticoagulants; Y92.89 Other specified places as the place of occurrence of the external cause; Z82.49 Family history of ischemic heart disease and other diseases of the circulatory system
CPT/HCPCS: 36415; 36600; 70450; 71045; 74018; 74176; 76705; 76775; 80048; 80053; 80061; 80076; 80164; 80307; 81001; 82140; 82306; 82550; 82570; 82784; 82805; 82962; 83036; 83516; 83520; 83605; 83735; 83880; 83883; 83970; 84100; 84132; 84155; 84156; 84165; 84300; 84484; 85007; 85018; 85025; 85027; 85610; 85730; 86160; 86225; 86235; 86256; 86334; 86703; 86704; 86706; 86708; 86803; 87040; 87070; 87081; 87086; 87205; 87340; 90935; 92950; 93005; 93306; 94002; 94003; 94640; 94660; 95819; 96365; 96366; 96375; 96376; 99291; C9113; G0378; J0171; J0692; J0696; J1642; J1815; J2250; J2543; J2704; J3480; J3490; J7060; P9047